=== PATIENT | male | born 1955 | race Caucasian/White ===

== ENCOUNTER 2018-07-14 02:31 | Observation (INO) | payer OTHER ==
[2018-07-14] MEDS ORDERED: SODIUM CHLORIDE 0.9% 1,000 ML IV STA (02:40)
--- NOTE | 2018-07-14 02:43 | ED ---
Chest Pain HPI - General Chief Complaint: Chest Pain Stated Complaint: Chest pain Time Seen by Provider: 07/14/18 02:40 Source: patient, EMS Mode of arrival: EMS - History of Present Illness Initial Comments: Sylvia is a 62-year-old male with history of his smoking and hypertension who presents the emergency department today for evaluation of chest pain. Patient reports that he has had chest pain intermittently throughout the past week, pain has resolved with rest in the past. Patient reports that this evening he developed pain and it persisted which prompted him to call EMS for transport to the hospital. Patient describes his pain as retrosternal, at its worst it was only a 4 out of 10 in intensity. The pain completely resolved after aspirin and nitro in route to the hospital. - Related Data Allergies Allergy/AdvReac Type Severity Reaction Status Date / Time No Known Allergies Allergy Verified 07/14/18 03:00 Review of Systems ROS Statement: Those systems with pertinent positive or pertinent negative responses have been documented in the HPI. ROS Other: All systems not noted in ROS Statement are negative. EKG Findings - EKG Comments: EKG Findings:: EKG obtained at 2:38 AM, rate is 63 rhythm is sinus is normal axis, normal intervals, ID 160, QRS 106, QTC is [address] elevations or depressions and no evidence of acute ischemia or infarction. Past Medical History Past Medical History: Hyperlipidemia, Hypertension, Osteoarthritis (OA) Additional Past Medical History / Comment(s): RLD History of Any Multi-Drug Resistant Organisms: None Reported Past Surgical History: Orthopedic Surgery Additional Past Surgical History / Comment(s): L leg ortho surgery, Past Psychological History: No Psychological Hx Reported Smoking Status: Current every day smoker Past Alcohol Use History: Occasional Past Drug Use History: None Reported General Exam - General Exam Comments Initial Comments: Physical Exam GENERAL: appears older than stated age Smells of cigarette smoke HENT: Normocephalic, Atraumatic. EYES: PERRL, EOMI PULMONARY: Unlabored respirations. No audible rales rhonchi or wheezing was noted. CARDIOVASCULAR: There is a regular rate and rhythm without any murmurs gallops or rubs. ABDOMEN: Soft and nontender with normal bowel sounds. No palpable abdominal mass SKIN: Skin is clear with no lesions or rashes and otherwise unremarkable. : Deferred NEUROLOGIC: Patient is alert and oriented x3. Moving all extremities spontaneously MUSCULOSKELETAL: Normal extremities with adequate strength and full range of motion. No lower extremity swelling or edema. No calf tenderness. PSYCHIATRIC: Normal psychiatric evaluation. Limitations: no limitations Course Vital Signs 07/14/18 07/14/18 02:35 06:09 Temperature 98.1 F Pulse Rate 65 64 Respiratory 16 16 Rate Blood Pressure 102/69 107/73 O2 Sat by Pulse 97 98 Oximetry Chest Pain MDM - [facility] The patient was seen and evaluated 62-year-old male with a history of tobacco abuse presenting to the ER today for evaluation of chest pain Chest pain has been intermittent but persistent tonight. Resolved with nitro and aspirin. Critical workup was ordered EKG was nonischemic Initial troponin negative Patient's risk factors I will plan to place him in observation for further evaluation. Patient care was discussed with his primary care physician Dr. Hall who accepts the admission. Disposition Clinical Impression: Chest pain Disposition: ADMITTED IP TO THIS HOSP
[2018-07-14 03:09] LABS: Basophils # (A) 0.1 k/uL (0-0.2); Basophils % (A) 1 %; Eosinophils # (A) 0.3 k/uL (0-0.7); Eosinophils % (A) 3 %; HCT 41.3 % (39.0-53.0); HGB 13.4 gm/dL (13.0-17.5); Lymphocytes # (A) 2.4 k/uL (1.0-4.8); Lymphocytes % (A) 21 %; MCH 34.6 pg (25.0-35.0); MCHC 32.4 g/dL (31.0-37.0); MCV 106.9 fL (80.0-100.0); Macrocytosis Moderate; Mean Platelet Volume 6.5; Monocytes # (A) 0.9 k/uL (0-1.0); Monocytes % (A) 8 %; Neutrophils # (A) 7.4 k/uL (1.3-7.7); Neutrophils % (A) 66 %; Platelet Count 316 k/uL (150-450); RBC 3.86 m/uL (4.30-5.90); RDW 12.6 % (11.5-15.5); WBC 11.2 k/uL (3.8-10.6)
[2018-07-14 03:22] LABS: INR 0.9 (<1.2); Partial Thromboplastin Time 22.6 sec (22.0-30.0); Prothrombin Time 9.4 sec (9.0-12.0)
[2018-07-14 03:30] LABS: ALT 29 U/L (21-72); AST 32 U/L (17-59); Albumin 3.4 g/dL (3.5-5.0); Alkaline Phosphatase 73 U/L (38-126); Anion Gap 6 mmol/L; Blood Urea Nitrogen 17 mg/dL (9-20); Calcium 8.9 mg/dL (8.4-10.2); Carbon Dioxide 23 mmol/L (22-30); Chloride 105 mmol/L (98-107); Glucose 96 mg/dL (74-99); Magnesium 1.8 mg/dL (1.6-2.3); Potassium 3.3 mmol/L (3.5-5.1); Sodium 134 mmol/L (137-145); Total Bilirubin 0.4 mg/dL (0.2-1.3); Total Protein 5.9 g/dL (6.3-8.2)
--- NOTE | 2018-07-14 03:32 | XR ---
EXAMINATION TYPE: XR chest 2V DATE OF EXAM: 07/14/2018 COMPARISON: NONE HISTORY: Chest pain TECHNIQUE: Frontal and lateral views of the chest are obtained. FINDINGS: There is coarsening of interstitial markings. There are mild infiltrates at the posterior lung base on the lateral view. There is no definite heart failure. Heart is enlarged. Mediastinum is normal. Bony thorax is intact. IMPRESSION: Cardiomegaly. Mild infiltrates at the posterior lung bases. No overt heart failure seen.
[2018-07-14] MEDS ORDERED: predniSONE 20 MG TAB PO STA (03:44)
[2018-07-14] MEDS ORDERED: AZITHROMYCIN 500 MG TAB PO STA (03:44)
[2018-07-14] MEDS ORDERED: Potassium Replacement Protocol 1 EACH MISC MISCELLANE PRN (03:45)
[2018-07-14 04:08] LABS: Creatine Kinase 106 U/L (55-170)
[2018-07-14 04:22] LABS: Creatine Kinase MB 1.3 ng/mL (0.0-2.4); Troponin I <0.012 ng/mL (0.000-0.034)
[2018-07-14] MEDS: POTASSIUM CHLORIDE ER 20 MEQ TAB.ER PO SCH ×2 (04:42→06:08)
[2018-07-14] MEDS ORDERED: NITROGLYCERIN SL TABS 0.4 MG TAB SUBLINGUAL PRN (05:14)
[2018-07-14 09:53] LABS: Creatine Kinase 91 U/L (55-170)
[2018-07-14 10:05] LABS: Creatine Kinase MB 1.2 ng/mL (0.0-2.4); Troponin I <0.012 ng/mL (0.000-0.034)
[2018-07-14 11:25] VITALS: RESP 18
[2018-07-14 15:48] LABS: Troponin I 0.018 ng/mL (0.000-0.034)
[2018-07-14 15:56] VITALS: BP 112/69; PULSE 69; TEMP 98.2
[2018-07-14] MEDS ORDERED: POTASSIUM CHLORIDE 2 MEQ/ML 20 ML VIAL IV SCH (16:00)
--- NOTE | 2018-07-14 17:36 | HP ---
HISTORY AND PHYSICAL CHIEF COMPLAINT: Chest pain. HISTORY OF PRESENT ILLNESS: This is another admission for this 62-year-old white male who has a history of hypertension and heavy smoking. He woke up with pain in the anterior chest which he described as feeling like tightness, but not a squeezing or pressure-like pain. He was not diaphoretic or short of breath. He was a little bit nauseated. He came to the emergency room, where his evaluation was negative, including his enzymes and EKG, and he was admitted. REVIEW OF SYSTEMS: He has had no syncope, neurologic problems, change in the vision or the hearing, cough, chest pain, palpitations, etc. He has had no orthopnea or PND. He has had no fever, chills, sputum production, abdominal pain, melena, hematochezia, jaundice, renal disease, diabetes, etc. Past medical history, family history, and personal and social histories reveal that he has no allergies. He is on Ultram, Requip, Tenoretic, Lipitor, vitamin D. He does have a history of alcoholism. He smokes every day and has a 41 pack/year history. PHYSICAL EXAMINATION: Blood pressure 116/80, pulse 58 and regular, respirations of 18. He is afebrile. GENERAL: He appeared to be well developed, well nourished, in no acute distress. Skin color was normal. Skin was warm and dry. Lymph nodes were not enlarged. Head, ears, eyes, nose, mouth and throat were normal. Neck veins were not distended. Carotids were normal. Chest was clear. Breath sounds were diminished due to his emphysema. Cardiac exam demonstrated normal sinus rhythm and no murmurs or extra sounds. Abdomen was soft, nontender without visceromegaly or masses. EXTREMITIES: Normal. Neurologically he was intact. IMPRESSION: 1. Chest pain. 2. Chronic obstructive pulmonary disease. 3. Hypertension. PLAN: 1. Bed rest. 2. IV fluids. 3. Serial EKGs and enzymes. MMODL / IJN: [id number] /
--- NOTE | 2018-07-15 00:02 | DS ---
DISCHARGE SUMMARY CHIEF COMPLAINT: Chest pain. HISTORY OF PRESENT ILLNESS AND PHYSICAL EXAM: The details of this man's history and physical can be found in the initial workup. LABORATORY STUDIES: While he was in the hospital he had laboratory studies, details which can be found in the laboratory section of his chart. COURSE IN HOSPITAL: After admission he was placed on bedrest and started on intravenous fluids. She had serial EKGs and enzymes. The enzymes were all normal. He was anxious to be discharged. He will go home on his usual activity, diet and medication. He will come into the office the next day and will do further cardiac testing. FINAL DIAGNOSES: 1. Chest pain. 2. Atherosclerotic cardiovascular disease. 3. Hypertension. 4. Chronic obstructive pulmonary disease. 5. Alcoholism. OPERATIONS: None. CONSULTATION: None. CONDITION: He is improved. MMODL / IJN: [id number] /
[2018-07-15] MEDS ORDERED: ASPIRIN 325 MG TAB PO SCH ×2 (09:00)
[2018-07-15] MEDS ORDERED: CHLORTHALIDONE 25 MG TAB PO SCH (09:00)
[2018-07-15] MEDS ORDERED: ATENOLOL 50 MG TAB PO SCH (09:00)
== END 2018-07-14 17:16 | disposition home or self-care (01) ==
LOC: EC 02:31 → 1SOBS 05:16
PROVIDERS: ADMIT Family Medicine; ATTEND Family Medicine
DX: R07.89 Other chest pain (principal); M19.90 Unspecified osteoarthritis, unspecified site; I10 Essential (primary) hypertension; R11.0 Nausea; F17.210 Nicotine dependence, cigarettes, uncomplicated; I25.10 Atherosclerotic heart disease of native coronary artery without angina pectoris; F10.20 Alcohol dependence, uncomplicated; J44.9 Chronic obstructive pulmonary disease, unspecified; E78.5 Hyperlipidemia, unspecified; Z79.899 Other long term (current) drug therapy
CPT/HCPCS: 96360; 99285; 36415; 93005; 83880; 80053; 82550; 82553; 83735; 84132; 84484; 85025; 85610; 85730; 71046; G0378; J7512

== ENCOUNTER → 2018-07-21 | Outpatient (CLI) | payer OTHER ==
--- NOTE | 2018-07-21 14:34 | US ---
EXAMINATION TYPE: US carotid duplex BILAT DATE OF EXAM: 07/21/2018 COMPARISON: NONE CLINICAL HISTORY: I65.23 Occlusion and stenosis of bilateral carotid. EXAM MEASUREMENTS: RIGHT: Peak Systolic Velocity (PSV) cm/sec ----- Right CCA: 72.6 ----- Right ICA: 89.6 ----- Right ECA: 62.1 ICA/CCA ratio: 1.2 RIGHT: End Diastole cm/sec ----- Right CCA: 21.6 ----- Right ICA: 33.7 ----- Right ECA: 11.3 LEFT: Peak Systolic Velocity (PSV) cm/sec ----- Left CCA: 82.5 ----- Left ICA: 86.1 ----- Left ECA: 60.4 ICA/CCA ratio: 1.0 LEFT: End Diastole cm/sec ----- Left CCA: 25.9 ----- Left ICA: 37.3 ----- Left ECA: 9.6 VERTEBRALS (direction of flow): Right Vertebral: Antegrade Left Vertebral: Antegrade Rhythm: Normal Moderate atherosclerotic changes with no significant velocity elevations visualized portion of both i nternal carotid arteries. IMPRESSION: Moderate atherosclerotic change bilaterally without hemodynamically significant stenosis seen in either internal carotid artery. Criteria for Assigning % of Stenosis / Diameter reduction (Estimation based on the indirect measurements of the internal carotid artery velocities (ICA PSV). 1. Normal (no stenosis)=ICA PSV < 125 cm/s: ratio < 2.0: ICA EDV<40 cm/s. 2. Less than 50% stenosis=ICA PSV < 125 cm/s: ratio < 2.0: ICA EDV<40 cm/s. 3. 50 to 69% stenosis=ICA PSV of 125 to 230 cm/s: ration 2.0 ? 4.0: ICA EDV 40-100 cm/s. 4. Greater than 70% stenosis to near occlusion= ICA PSV > 230 cm/s: ratio > 4.0: ICA EDV > 100 cm/s. 5. Near occlusion= ICA PSV velocities may be low or undetectable: variable ratio and ICA EDV. 6. Total occlusion=unable to detect flow.
== END | disposition home or self-care (01) ==
LOC: RADUSWWP 13:39
PROVIDERS: ATTEND Family Medicine
DX: I65.23 Occlusion and stenosis of bilateral carotid arteries (principal)
CPT/HCPCS: 93880

== ENCOUNTER 2021-08-19 10:27 | Emergency (ER) | payer OTHER ==
[2021-08-19 10:40] VITALS: BP 101/62; PULSE 76; TEMP 97.6
[2021-08-19 11:06] VITALS: RESP 18
--- NOTE | 2021-08-19 15:21 | ED ---
General Adult HPI - General Chief complaint: Weakness Stated complaint: mental health, chest pain, ETOH Time Seen by Provider: 08/19/21 10:57 Source: patient Mode of arrival: EMS Limitations: no limitations - History of Present Illness Initial comments: Patient eloped without being seen by a provider. He apparently took a cab home. I never saw patient and was not involved in his care. KG was obtained by nursing staff and is as documented: Normal sinus rhythm, ventricular rate 74, PA interval 136, QTC 421 - Related Data Home Medications Medication Instructions Recorded Confirmed Aspirin 325 mg PO DAILY 07/14/18 07/14/18 Atenolol/Chlorthalidone [Tenoretic 1 tab PO DAILY 07/14/18 07/14/18 50 Tablet] Atorvastatin [Lipitor] 10 mg PO HS 07/14/18 07/14/18 Diphenoxylate HCl/Atropine 1 - 2 tab PO QID PRN 07/14/18 07/14/18 [Lomotil 2.5-0.025 mg Tablet] Ondansetron [Zofran ODT] 4 mg PO Q6H PRN 07/14/18 07/14/18 rOPINIRole HCL [Requip] 4 mg PO HS 07/14/18 07/14/18 traMADol HCL [Ultram] 50 mg PO TID PRN 07/14/18 07/14/18 Previous Rx's Medication Instructions Recorded Aspirin 325 mg PO DAILY #100 tab 07/14/18 Allergies Allergy/AdvReac Type Severity Reaction Status Date / Time No Known Allergies Allergy Verified 07/14/18 07:40 Review of Systems ROS Statement: Those systems with pertinent positive or pertinent negative responses have been documented in the HPI. ROS Other: All systems not noted in ROS Statement are negative. Past Medical History Past Medical History: Hyperlipidemia, Hypertension, Osteoarthritis (OA) Additional Past Medical History / Comment(s): RLD History of Any Multi-Drug Resistant Organisms: None Reported Past Surgical History: Orthopedic Surgery Additional Past Surgical History / Comment(s): L leg ortho surgery, Past Anesthesia/Blood Transfusion Reactions: No Reported Reaction, Motion Sickness Past Psychological History: No Psychological Hx Reported Past Alcohol Use History: Occasional Past Drug Use History: None Reported - Past Family History Father Additional Family Medical History / Comment(s): Father in his mid to late 60s-pt was told cause of was because his "heart blew up" Mother Family Medical History: CVA/TIA, Diabetes Mellitus Additional Family Medical History / Comment(s): Mother had a CVA. Sister(s) Family Medical History: CVA/TIA, Diabetes Mellitus Additional Family Medical History / Comment(s): Pts twin sister of a CVA in her mid 50s. Brother(s) Family Medical History: CVA/TIA, Diabetes Mellitus Additional Family Medical History / Comment(s): Brother had CVA General Exam Limitations: no limitations Course Vital Signs 08/19/21 08/19/21 10:30 11:02 Temperature 97.6 F Pulse Rate 76 Respiratory 16 18 Rate Blood Pressure 101/62 O2 Sat by Pulse 98 Oximetry Disposition Clinical Impression: Weakness Disposition: Left Against Medical Advice Is patient prescribed a controlled substance at d/c from ED?: No Referrals: None,Stated [Primary Care Provider] - 1-2 days Time of Disposition: 15:20
== END 2021-08-19 11:25 | disposition left against medical advice (07) ==
LOC: EC 10:27
DX: R53.1 Weakness (principal); R07.9 Chest pain, unspecified; I10 Essential (primary) hypertension; M19.90 Unspecified osteoarthritis, unspecified site; E78.5 Hyperlipidemia, unspecified; K21.9 Gastro-esophageal reflux disease without esophagitis; Z79.82 Long term (current) use of aspirin; Z79.899 Other long term (current) drug therapy
CPT/HCPCS: 96374; 96375; 99285

== ENCOUNTER 2021-11-16 14:20 | Emergency (ER) | payer OTHER ==
[2021-11-16 14:23] VITALS: BP 127/78; PULSE 101; RESP 20
[2021-11-16 14:31] VITALS: TEMP 98.6
--- NOTE | 2021-11-16 14:39 | ED ---
General Adult HPI - General Chief complaint: Weakness Stated complaint: Weakness Time Seen by Provider: 11/16/21 14:26 Source: patient, EMS, RN notes reviewed Mode of arrival: EMS Limitations: no limitations - History of Present Illness Initial comments: Patient is a pleasant 65-year-old male presenting to the emergency department Gen. weakness and fatigue. Patient has been having symptoms a little bit, worsening today. Patient states he was walking out of his place in the [place] which takes him around 10 or 15 minutes he got more fatigued than normal and had to rest once or twice. Patient feels somewhat weak all over. Patient requests water and states he is starting to feel better. Patient feels he has been eating and drinking okay otherwise. Patient unclear on previous history of similar symptoms. Patient denies any confusion or isolated area of weakness. No fever. - Related Data Home Medications Medication Instructions Recorded Confirmed Aspirin 325 mg PO DAILY 07/14/18 07/14/18 Atenolol/Chlorthalidone [Tenoretic 1 tab PO DAILY 07/14/18 07/14/18 50 Tablet] Atorvastatin [Lipitor] 10 mg PO HS 07/14/18 07/14/18 Diphenoxylate HCl/Atropine 1 - 2 tab PO QID PRN 07/14/18 07/14/18 [Lomotil 2.5-0.025 mg Tablet] Ondansetron [Zofran ODT] 4 mg PO Q6H PRN 07/14/18 07/14/18 rOPINIRole HCL [Requip] 4 mg PO HS 07/14/18 07/14/18 traMADol HCL [Ultram] 50 mg PO TID PRN 07/14/18 07/14/18 Previous Rx's Medication Instructions Recorded Aspirin 325 mg PO DAILY #100 tab 07/14/18 Allergies Allergy/AdvReac Type Severity Reaction Status Date / Time No Known Allergies Allergy Verified 11/16/21 14:23 Review of Systems ROS Statement: Those systems with pertinent positive or pertinent negative responses have been documented in the HPI. ROS Other: All systems not noted in ROS Statement are negative. Constitutional: Denies: fever Eyes: Denies: eye pain ENT: Denies: ear pain Respiratory: Denies: cough Cardiovascular: Denies: chest pain Endocrine: Reports: fatigue Gastrointestinal: Denies: abdominal pain Genitourinary: Denies: dysuria Musculoskeletal: Denies: back pain Skin: Denies: rash Neurological: Reports: as per HPI Past Medical History Past Medical History: Hyperlipidemia, Hypertension, Osteoarthritis (OA) Additional Past Medical History / Comment(s): RLD History of Any Multi-Drug Resistant Organisms: None Reported Past Surgical History: Orthopedic Surgery Additional Past Surgical History / Comment(s): L leg ortho surgery, Past Anesthesia/Blood Transfusion Reactions: No Reported Reaction, Motion Sickness Past Psychological History: No Psychological Hx Reported Smoking Status: Current every day smoker Past Alcohol Use History: Occasional Past Drug Use History: None Reported - Past Family History Father Additional Family Medical History / Comment(s): Father in his mid to late 60s-pt was told cause of was because his "heart blew up" Mother Family Medical History: CVA/TIA, Diabetes Mellitus Additional Family Medical History / Comment(s): Mother had a CVA. Sister(s) Family Medical History: CVA/TIA, Diabetes Mellitus Additional Family Medical History / Comment(s): Pts twin sister of a CVA in her mid 50s. Brother(s) Family Medical History: CVA/TIA, Diabetes Mellitus Additional Family Medical History / Comment(s): Brother had CVA General Exam Limitations: no limitations General appearance: alert, in no apparent distress Head exam: Present: normocephalic Eye exam: Present: normal appearance, PERRL, EOMI ENT exam: Present: normal oropharynx Neck exam: Present: normal inspection Respiratory exam: Present: normal lung sounds bilaterally Cardiovascular Exam: Present: regular rate, normal rhythm GI/Abdominal exam: Present: soft. Absent: tenderness Extremities exam: Present: normal inspection Neurological exam: Present: alert, CN II-XII intact. Absent: motor sensory deficit Expanded Neurological exam: Present: protecting the airway Speech: Present: fluid speech Cranial nerves: EOM's Intact: Normal Sensory exam: Upper Extremity Light Touch: Normal, Lower Extremity Light Touch: Normal Motor strength exam: RUE: 5, LUE: 5, RLE: 5, LLE: 5 Eye Response: (4) open spontaneously Motor Response: (6) obeys commands Verbal Response: (5) oriented Psychiatric exam: Present: normal affect, normal mood Skin exam: Present: normal color Course Vital Signs 11/16/21 14:21 Temperature 98.6 F Pulse Rate 101 H Respiratory 20 Rate Blood Pressure 127/78 O2 Sat by Pulse 98 Oximetry EKG Findings - EKG Comments: EKG Findings:: Sinus rhythm rate 96. VA 175. QRS 16. QT 346. QTc 399. Normal axis. Normal QRS. No acute ST change. Medical Decision Making - Medical Decision Making Case discussed with Dr. Hall, who will admit patient. - Lab Data Result diagrams: 11/16/21 15:00 11/16/21 15:00 Lab Results 11/16/21 11/16/21 11/16/21 Range/Units 15:00 15:00 15:00 WBC 5.7 (3.8-10.6) k/uL RBC 3.36 L (4.30-5.90) m/uL Hgb 13.0 (13.0-17.5) gm/dL Hct 39.6 (39.0-53.0) % MCV 118.2 H (80.0-100.0) fL MCH 38.8 H (25.0-35.0) pg MCHC 32.8 (31.0-37.0) g/dL RDW 13.7 (11.5-15.5) % Plt Count 301 (150-450) k/uL MPV 7.1 Neutrophils % 61 % Lymphocytes % 27 % Monocytes % 7 % Eosinophils % 1 % Basophils % 1 % Neutrophils # 3.5 (1.3-7.7) k/uL Lymphocytes # 1.5 (1.0-4.8) k/uL Monocytes # 0.4 (0-1.0) k/uL Eosinophils # 0.1 (0-0.7) k/uL Basophils # 0.1 (0-0.2) k/uL Manual Slide Review Performed Macrocytosis Marked A PT 9.6 (9.0-12.0) sec INR 0.9 (<1.2) APTT 20.2 L (22.0-30.0) sec Sodium 143 (137-145) mmol/L Potassium 3.7 (3.5-5.1) mmol/L Chloride 110 H (98-107) mmol/L Carbon Dioxide 18 L (22-30) mmol/L Anion Gap 15 mmol/L BUN 19 (9-20) mg/dL Creatinine 1.02 (0.66-1.25) mg/dL Est GFR (CKD-EPI)AfAm 90 (>60 ml/min/1.73 sqM) Est GFR (CKD-EPI)NonAf 78 (>60 ml/min/1.73 sqM) Glucose 144 H (74-99) mg/dL Plasma Lactic Acid Archie (0.7-2.0) mmol/L Calcium 8.4 (8.4-10.2) mg/dL Magnesium 1.5 L (1.6-2.3) mg/dL Total Bilirubin 0.4 (0.2-1.3) mg/dL AST 49 (17-59) U/L ALT 21 (4-49) U/L Alkaline Phosphatase 71 (38-126) U/L Troponin I (0.000-0.034) ng/mL Total Protein 6.5 (6.3-8.2) g/dL Albumin 3.9 (3.5-5.0) g/dL Free T4 0.91 (0.78-2.19) ng/dL Free T3 pg/mL 3.3 (2.8-5.3) pg/ml 11/16/21 11/16/21 Range/Units 15:00 15:00 WBC (3.8-10.6) k/uL RBC (4.30-5.90) m/uL Hgb (13.0-17.5) gm/dL Hct (39.0-53.0) % MCV (80.0-100.0) fL MCH (25.0-35.0) pg MCHC (31.0-37.0) g/dL RDW (11.5-15.5) % Plt Count (150-450) k/uL MPV Neutrophils % % Lymphocytes % % Monocytes % % Eosinophils % % Basophils % % Neutrophils # (1.3-7.7) k/uL Lymphocytes # (1.0-4.8) k/uL Monocytes # (0-1.0) k/uL Eosinophils # (0-0.7) k/uL Basophils # (0-0.2) k/uL Manual Slide Review Macrocytosis PT (9.0-12.0) sec INR (<1.2) APTT (22.0-30.0) sec Sodium (137-145) mmol/L Potassium (3.5-5.1) mmol/L Chloride (98-107) mmol/L Carbon Dioxide (22-30) mmol/L Anion Gap mmol/L BUN (9-20) mg/dL Creatinine (0.66-1.25) mg/dL Est GFR (CKD-EPI)AfAm (>60 ml/min/1.73 sqM) Est GFR (CKD-EPI)NonAf (>60 ml/min/1.73 sqM) Glucose (74-99) mg/dL Plasma Lactic Acid Archie 4.3 H* (0.7-2.0) mmol/L Calcium (8.4-10.2) mg/dL Magnesium (1.6-2.3) mg/dL Total Bilirubin (0.2-1.3) mg/dL AST (17-59) U/L ALT (4-49) U/L Alkaline Phosphatase (38-126) U/L Troponin I <0.012 (0.000-0.034) ng/mL Total Protein (6.3-8.2) g/dL Albumin (3.5-5.0) g/dL Free T4 (0.78-2.19) ng/dL Free T3 pg/mL (2.8-5.3) pg/ml - Radiology Data Radiology results: report reviewed (Computed tomography scan the brain shows some atrophy. No acute process.), image reviewed (Chest x-ray shows no acute process) Disposition Clinical Impression: Lactic acidosis, Weakness Disposition: ADMITTED IP TO THIS [facility] Is patient prescribed a controlled substance at d/c from ED?: No Referrals: Paulo Hall MD [Primary Care Provider] - 1-2 days Decision Time: 15:58
[2021-11-16 15:34] LABS: Albumin 3.9 g/dL (3.5-5.0); Calcium 8.4 mg/dL (8.4-10.2); Magnesium 1.5 mg/dL (1.6-2.3); Potassium 3.7 mmol/L (3.5-5.1); Total Bilirubin 0.4 mg/dL (0.2-1.3); Total Protein 6.5 g/dL (6.3-8.2)
[2021-11-16 15:36] LABS: Basophils # (A) 0.1 k/uL (0-0.2); Basophils % (A) 1 %; Eosinophils # (A) 0.1 k/uL (0-0.7); Eosinophils % (A) 1 %; HCT 39.6 % (39.0-53.0); Lymphocytes # (A) 1.5 k/uL (1.0-4.8); Lymphocytes % (A) 27 %; MCH 38.8 pg (25.0-35.0); MCHC 32.8 g/dL (31.0-37.0); MCV 118.2 fL (80.0-100.0); Macrocytosis Marked; Mean Platelet Volume 7.1; Monocytes # (A) 0.4 k/uL (0-1.0); Monocytes % (A) 7 %; Neutrophils # (A) 3.5 k/uL (1.3-7.7); Neutrophils % (A) 61 %; Platelet Count 301 k/uL (150-450); RBC 3.36 m/uL (4.30-5.90); RDW 13.7 % (11.5-15.5); WBC 5.7 k/uL (3.8-10.6)
[2021-11-16 15:42] LABS: INR 0.9 (<1.2); Prothrombin Time 9.6 sec (9.0-12.0)
--- NOTE | 2021-11-16 15:43 | CT ---
EXAMINATION TYPE: CT brain wo con DATE OF EXAM: 11/16/2021 COMPARISON: 11/30/2010 HISTORY: CT DLP: mGycm Automated exposure control for dose reduction was used. There is mild cerebral cortical atrophy. There is no mass effect or midline shift. There is no sign o f intracranial hemorrhage. There is no evidence of cerebral edema. Calvarium is intact. There is norm al aeration of the mastoid sinuses. IMPRESSION: Mild atrophy. No acute intracranial abnormality. No adverse change..
--- NOTE | 2021-11-16 15:44 | XR ---
EXAMINATION TYPE: XR chest 2V DATE OF EXAM: 11/16/2021 COMPARISON: 07/14/2018 HISTORY: Chest pain. Weakness TECHNIQUE: FINDINGS: Heart and mediastinum are normal. Lungs are clear. Diaphragm is normal. Bony thorax appears normal. IMPRESSION: Normal chest. There is clearing of the mild atelectasis at the lung bases compared to old exam.
[2021-11-16 15:45] LABS: Partial Thromboplastin Time 20.2 sec (22.0-30.0)
[2021-11-16 15:50] LABS: T4, Free (Free Thyroxine) 0.91 ng/dL (0.78-2.19)
[2021-11-16] MEDS ORDERED: NALOXONE 0.4 MG/ML 1 ML VIAL IV PRN (15:59)
[2021-11-16] MEDS ORDERED: SODIUM CHLORIDE 0.9% 1,000 ML IV SCH (16:00)
== END 2021-11-16 16:22 | disposition other institution (70) ==
LOC: EC 14:20 → 4SSUR 16:00 → UNDOADMOB 16:00 → EC 16:22
DX: E87.2 Acidosis (principal); R53.1 Weakness; I10 Essential (primary) hypertension; F17.200 Nicotine dependence, unspecified, uncomplicated
CPT/HCPCS: 36415; 70450; 71046; 80053; 83605; 83735; 84439; 84443; 84481; 84484; 85025; 85610; 85730; 93005

== ENCOUNTER 2021-11-17 09:30 | Emergency (ER) | payer OTHER ==
[2021-11-17 09:36] VITALS: BP 173/89; PULSE 92; RESP 20; TEMP 97.7
[2021-11-17] MEDS ORDERED: SODIUM CHLORIDE 0.9% 2,000 ML IV STA (09:46)
[2021-11-17 10:35] LABS: Appearance,Urine Clear (Clear); Bilirubin,Urine Negative (Negative); Blood,Urine Negative (Negative); Color,Urine Yellow; Glucose,Urine (UA) Negative (Negative); Ketones,Urine Negative (Negative); Leukocyte Esterase,Urine Negative (Negative); Nitrite,Urine Negative (Negative); PH, Urine 6.5 (5.0-8.0); Protein,Urine Negative (Negative); Specific Gravity,Urine 1.012 (1.001-1.035); Urobilinogen,Urine <2.0 mg/dL (<2.0)
[2021-11-17 10:36] LABS: Basophils # (A) 0.1 k/uL (0-0.2); Basophils % (A) 1 %; Eosinophils # (A) 0.1 k/uL (0-0.7); Eosinophils % (A) 1 %; HCT 38.8 % (39.0-53.0); Lymphocytes # (A) 1.2 k/uL (1.0-4.8); Lymphocytes % (A) 19 %; MCH 38.9 pg (25.0-35.0); MCHC 33.6 g/dL (31.0-37.0); MCV 115.8 fL (80.0-100.0); Macrocytosis Marked; Mean Platelet Volume 7.2; Monocytes # (A) 0.5 k/uL (0-1.0); Monocytes % (A) 8 %; Neutrophils # (A) 4.6 k/uL (1.3-7.7); Neutrophils % (A) 70 %; Platelet Count 276 k/uL (150-450); RBC 3.35 m/uL (4.30-5.90); RDW 13.1 % (11.5-15.5); WBC 6.6 k/uL (3.8-10.6)
[2021-11-17 10:45] LABS: ALT 24 U/L (4-49); AST 63 U/L (17-59); African American GFR (CKD) >90 (>60 ml/min/1.73 sqM); Alkaline Phosphatase 76 U/L (38-126); Anion Gap 8 mmol/L; Blood Urea Nitrogen 15 mg/dL (9-20); Calcium 9.2 mg/dL (8.4-10.2); Carbon Dioxide 23 mmol/L (22-30); Chloride 102 mmol/L (98-107); Glucose 92 mg/dL (74-99); Lipase 147 U/L (23-300); Magnesium 1.3 mg/dL (1.6-2.3); Non-African American GFR(CKD) 89 (>60 ml/min/1.73 sqM); Potassium 3.7 mmol/L (3.5-5.1); Sodium 133 mmol/L (137-145); Total Bilirubin 0.7 mg/dL (0.2-1.3); Total Protein 6.9 g/dL (6.3-8.2)
[2021-11-17] MEDS ORDERED: MAGNESIUM OXIDE 400 MG TAB PO STA (12:28)
[2021-11-17] MEDS ORDERED: DIPHENOX-ATROP STARTER PACK 8 TAB BTL PO STA (12:30)
--- NOTE | 2021-11-17 12:30 | ED ---
General Adult HPI - General Chief complaint: Nausea/Vomiting/Diarrhea Stated complaint: diarrhea Time Seen by Provider: 11/17/21 09:42 Source: patient, RN notes reviewed Mode of arrival: ambulatory Limitations: no limitations - History of Present Illness Initial comments: 65-year-old male presents emergency Department with chief complaint of diarrhea. Patient states that they are for couple days. Patient denies any abdominal pain denies chest pain shortness breath he states he felt weak yesterday states he had an episode of diarrhea so he left the hospital. Patient states she does not have weakness he had history. Patient denies fevers or chills no dysuria no hematuria denies any melena hematochezia. - Related Data Home Medications Medication Instructions Recorded Confirmed traMADol HCL [Ultram] 50 mg PO BID PRN 07/14/18 11/17/21 Albuterol Sulfate [Proair Hfa] 2 puff INHALATION RT-Q6H PRN 11/17/21 11/17/21 Atenolol/Chlorthalidone 1 tab PO DAILY 11/17/21 11/17/21 [Atenolol/Chlorthalidone 50-25] Budesonide-Formot 160-4.5 Mcg 2 puff INHALATION RT-DAILY 11/17/21 11/17/21 [Symbicort 160-4.5 Mcg Inhaler] Ergocalciferol [Vitamin D2 (1250 1,250 mcg PO Q30D 11/17/21 11/17/21 Mcg = 29173 Iu)] rOPINIRole HCL [Requip] 10 mg PO HS PRN 11/17/21 11/17/21 Allergies Allergy/AdvReac Type Severity Reaction Status Date / Time No Known Allergies Allergy Verified 11/17/21 10:15 Review of Systems ROS Statement: Those systems with pertinent positive or pertinent negative responses have been documented in the HPI. ROS Other: All systems not noted in ROS Statement are negative. Past Medical History Past Medical History: Hyperlipidemia, Hypertension, Osteoarthritis (OA) Additional Past Medical History / Comment(s): RLD History of Any Multi-Drug Resistant Organisms: None Reported Past Surgical History: Orthopedic Surgery Additional Past Surgical History / Comment(s): L leg ortho surgery, Past Anesthesia/Blood Transfusion Reactions: No Reported Reaction, Motion Sickness Past Psychological History: No Psychological Hx Reported Smoking Status: Current every day smoker Past Alcohol Use History: Occasional Past Drug Use History: None Reported - Past Family History Father Additional Family Medical History / Comment(s): Father in his mid to late 60s-pt was told cause of was because his "heart blew up" Mother Family Medical History: CVA/TIA, Diabetes Mellitus Additional Family Medical History / Comment(s): Mother had a CVA. Sister(s) Family Medical History: CVA/TIA, Diabetes Mellitus Additional Family Medical History / Comment(s): Pts twin sister of a CVA in her mid 50s. Brother(s) Family Medical History: CVA/TIA, Diabetes Mellitus Additional Family Medical History / Comment(s): Brother had CVA General Exam Limitations: no limitations General appearance: alert, in no apparent distress Head exam: Present: atraumatic, normocephalic, normal inspection Eye exam: Present: normal appearance, PERRL, EOMI. Absent: scleral icterus, conjunctival injection, periorbital swelling ENT exam: Present: normal exam, normal oropharynx, mucous membranes moist Neck exam: Present: normal inspection, full ROM. Absent: tenderness, meningismus, lymphadenopathy Respiratory exam: Present: normal lung sounds bilaterally. Absent: respiratory distress, wheezes, rales, rhonchi, stridor Cardiovascular Exam: Present: regular rate, normal rhythm, normal heart sounds. Absent: systolic murmur, diastolic murmur, rubs, gallop, clicks GI/Abdominal exam: Present: soft, normal bowel sounds. Absent: distended, tenderness, guarding, rebound, rigid Back exam: Absent: CVA tenderness (R), CVA tenderness (L) Skin exam: Present: warm, dry, intact, normal color. Absent: rash Course Vital Signs 11/17/21 09:33 Temperature 97.7 F Pulse Rate 92 Respiratory 20 Rate Blood Pressure 173/89 O2 Sat by Pulse 100 Oximetry Medical Decision Making - Medical Decision Making Patient presented for diarrhea. Patient unable to provide sample. This most likely is related to viral diarrhea. Patient does have mild hypomagnesemia patient was given Mag-Ox patient will be discharged in stable condition return parameters were discussed. - Lab Data Result diagrams: 11/17/21 10:18 11/17/21 10:18 Lab Results 11/17/21 11/17/21 11/17/21 Range/Units 10:18 10:18 10:19 WBC 6.6 (3.8-10.6) k/uL RBC 3.35 L (4.30-5.90) m/uL Hgb 13.0 (13.0-17.5) gm/dL Hct 38.8 L (39.0-53.0) % MCV 115.8 H (80.0-100.0) fL MCH 38.9 H (25.0-35.0) pg MCHC 33.6 (31.0-37.0) g/dL RDW 13.1 (11.5-15.5) % Plt Count 276 (150-450) k/uL MPV 7.2 Neutrophils % 70 % Lymphocytes % 19 % Monocytes % 8 % Eosinophils % 1 % Basophils % 1 % Neutrophils # 4.6 (1.3-7.7) k/uL Lymphocytes # 1.2 (1.0-4.8) k/uL Monocytes # 0.5 (0-1.0) k/uL Eosinophils # 0.1 (0-0.7) k/uL Basophils # 0.1 (0-0.2) k/uL Macrocytosis Marked A Sodium 133 L (137-145) mmol/L Potassium 3.7 (3.5-5.1) mmol/L Chloride 102 (98-107) mmol/L Carbon Dioxide 23 (22-30) mmol/L Anion Gap 8 mmol/L BUN 15 (9-20) mg/dL Creatinine 0.91 (0.66-1.25) mg/dL Est GFR (CKD-EPI)AfAm >90 (>60 ml/min/1.73 sqM) Est GFR (CKD-EPI)NonAf 89 (>60 ml/min/1.73 sqM) Glucose 92 (74-99) mg/dL Calcium 9.2 (8.4-10.2) mg/dL Magnesium 1.3 L (1.6-2.3) mg/dL Total Bilirubin 0.7 (0.2-1.3) mg/dL AST 63 H (17-59) U/L ALT 24 (4-49) U/L Alkaline Phosphatase 76 (38-126) U/L Total Protein 6.9 (6.3-8.2) g/dL Albumin 4.0 (3.5-5.0) g/dL Lipase 147 (23-300) U/L Urine Color Yellow Urine Appearance Clear (Clear) Urine pH 6.5 (5.0-8.0) Ur Specific Lowry 1.012 (1.001-1.035) Urine Protein Negative (Negative) Urine Glucose (UA) Negative (Negative) Urine Ketones Negative (Negative) Urine Blood Negative (Negative) Urine Nitrite Negative (Negative) Urine Bilirubin Negative (Negative) Urine Urobilinogen <2.0 (<2.0) mg/dL Ur Leukocyte Esterase Negative (Negative) Disposition Clinical Impression: Diarrhea Disposition: HOME SELF-CARE Condition: Stable Instructions (If sedation given, give patient instructions): Acute Diarrhea (ED) Additional Instructions: Please return to the Emergency Department if symptoms worsen or any other concerns. Is patient prescribed a controlled substance at d/c from ED?: No Referrals: Paulo Hall MD [Primary Care Provider] - 1-2 days Time of Disposition: 12:29
== END 2021-11-17 12:55 | disposition home or self-care (01) ==
LOC: EC 09:30
DX: R19.7 Diarrhea, unspecified (principal); I10 Essential (primary) hypertension; F17.200 Nicotine dependence, unspecified, uncomplicated
CPT/HCPCS: 36415; 80053; 81003; 83690; 83735; 85025; 99284

== ENCOUNTER 2022-09-17 17:13 | Emergency (ER) | payer MEDICARE, OTHER ==
[2022-09-17] MEDS: SODIUM CHLORIDE 0.9% 1,000 ML IV STA ×2 (17:16→19:39)
[2022-09-17] MEDS ORDERED: HYDROmorphone 1 MG/ML 1 ML SYRINGE IVP STA ×5 (17:29→19:34)
[2022-09-17 17:30] VITALS: BP 93/80; PULSE 78; RESP 22
[2022-09-17] MEDS ORDERED: SODIUM CHLORIDE 0.9% 2,000 ML IV ONE (17:35)
[2022-09-17] MEDS ORDERED: DIPH,PERTUS(ACELL)TETVAC-LF 0.5 ML VIAL IM ONE (17:37)
[2022-09-17 17:57] LABS: Basophils # (A) 0.1 k/uL (0-0.2); Basophils % (A) 1 %; Eosinophils # (A) 0.1 k/uL (0-0.7); Eosinophils % (A) 1 %; HCT 40.6 % (39.0-53.0); HGB 13.8 gm/dL (13.0-17.5); Lymphocytes # (A) 3.2 k/uL (1.0-4.8); Lymphocytes % (A) 45 %; MCH 37.3 pg (25.0-35.0); MCHC 34.1 g/dL (31.0-37.0); MCV 109.6 fL (80.0-100.0); Macrocytosis Marked; Monocytes # (A) 0.8 k/uL (0-1.0); Monocytes % (A) 11 %; Neutrophils # (A) 2.8 k/uL (1.3-7.7); Neutrophils % (A) 39 %; Platelet Count 271 k/uL (150-450); RDW 13.5 % (11.5-15.5); WBC 7.1 k/uL (3.8-10.6)
[2022-09-17 18:05] LABS: Albumin 4.7 g/dL (3.5-5.0); Calcium 9.4 mg/dL (8.4-10.2); Potassium 3.7 mmol/L (3.5-5.1); Total Bilirubin 0.6 mg/dL (0.2-1.3); Total Protein 7.3 g/dL (6.3-8.2)
[2022-09-17] MEDS ORDERED: SODIUM CHLORIDE 0.9% 1,000 ML IV SCH (18:15)
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
[2022-09-17 18:30] LABS: INR 0.9 (<1.2); Prothrombin Time 9.5 sec (9.0-12.0)
[2022-09-17 18:33] LABS: Partial Thromboplastin Time 19.3 sec (22.0-30.0)
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
== END 2022-09-17 18:40 | disposition other institution (70) ==
LOC: EC 17:13
DX: T20.10XA Burn of first degree of head, face, and neck, unspecified site, initial encounter (principal); T23.202A Burn of second degree of left hand, unspecified site, initial encounter; T23.201A Burn of second degree of right hand, unspecified site, initial encounter; I10 Essential (primary) hypertension; M19.90 Unspecified osteoarthritis, unspecified site; F17.200 Nicotine dependence, unspecified, uncomplicated; Z79.899 Other long term (current) drug therapy; Z23 Encounter for immunization; X08.8XXA Exposure to other specified smoke, fire and flames, initial encounter
CPT/HCPCS: 99285 ×2; 96365 ×2; 96366 ×2; 90471 ×2; 96375 ×2; 96376 ×2; 16020 ×2; 16000 ×2; 36415; 93005; 86900; 86901; 80053; 83605; 84484; 85025; 85610; 85730; 86850; 71045; 90715; G0480; J0690; J1170; 80320

== ENCOUNTER 2024-03-03 11:07 | Emergency (ER) | payer MEDICARE, OTHER ==
--- NOTE | 2024-03-03 11:47 | ED ---
Extremity Problem HPI - General Chief complaint: Extremity Problem,Nontraumatic Stated complaint: Weakness Time Seen by Provider: 03/03/24 11:17 Source: patient, RN notes reviewed Mode of arrival: ambulatory Limitations: no limitations - History of Present Illness Initial comments: 68-year-old male presents emergency department complaint of bilateral lower extremity swelling. Patient states over the last couple days he also noticed that it is difficult to lay down at night and sleep states he feels like he cannot get enough air in. He has no history of congestive heart failure, no history of renal disease. Patient states never had any like this in the past he is a heavy smoker. Patient denies fevers or chills no chest pain. - Related Data Home Medications Medication Instructions Recorded Confirmed Albuterol Sulfate [Proair Hfa] 2 puff INHALATION RT-QID PRN 11/17/21 03/03/24 Budesonide-Formot 160-4.5 Mcg 2 puff INHALATION RT-BID PRN 11/17/21 03/03/24 [Symbicort 160-4.5 Mcg Inhaler] Amoxicillin 500 mg PO TID 03/03/24 03/03/24 Ibuprofen [Motrin] 800 mg PO Q4H PRN 03/03/24 03/03/24 Metoprolol Succinate (ER) [Toprol 50 mg PO DAILY 03/03/24 03/03/24 Xl] Previous Rx's Medication Instructions Recorded Azithromycin [Zithromax Z Pack] 0 tab PO DIRECTED #6 tab 03/03/24 Allergies Allergy/AdvReac Type Severity Reaction Status Date / Time No Known Allergies Allergy Verified 03/03/24 12:37 Review of Systems ROS Statement: Those systems with pertinent positive or pertinent negative responses have been documented in the HPI. ROS Other: All systems not noted in ROS Statement are negative. Past Medical History Past Medical History: Hyperlipidemia, Hypertension, Osteoarthritis (OA) Additional Past Medical History / Comment(s): RLD History of Any Multi-Drug Resistant Organisms: None Reported Past Surgical History: Orthopedic Surgery Additional Past Surgical History / Comment(s): L leg ortho surgery, Past Anesthesia/Blood Transfusion Reactions: No Reported Reaction, Motion Sic kness Past Psychological History: No Psychological Hx Reported Smoking Status: Current every day smoker Past Alcohol Use History: Occasional Past Drug Use History: None Reported - Past Family History Father Additional Family Medical History / Comment(s): Father in his mid to late 60s-pt was told cause of was because his "heart blew up" Mother Family Medical History: CVA/TIA, Diabetes Mellitus Additional Family Medical History / Comment(s): Mother had a CVA. Sister(s) Family Medical History: CVA/TIA, Diabetes Mellitus Additional Family Medical History / Comment(s): Pts twin sister of a CVA in her mid 50s. Brother(s) Family Medical History: CVA/TIA, Diabetes Mellitus Additional Family Medical History / Comment(s): Brother had CVA General Exam Limitations: no limitations General appearance: alert, in no apparent distress Head exam: Present: atraumatic, normocephalic, normal inspection Neck exam: Present: normal inspection, full ROM. Absent: tenderness, meningismus, lymphadenopathy Respiratory exam: Present: normal lung sounds bilaterally. Absent: respiratory distress, wheezes, rales, rhonchi, stridor Cardiovascular Exam: Present: regular rate, normal rhythm, normal heart sounds. Absent: systolic murmur, diastolic murmur, rubs, gallop, clicks GI/Abdominal exam: Present: soft, normal bowel sounds. Absent: distended, tenderness, guarding, rebound, rigid Extremities exam: Present: normal capillary refill, pedal edema Neurological exam: Present: alert Course Vital Signs 03/03/24 03/03/24 11:11 11:12 Temperature 98 F Pulse Rate 85 78 Respiratory 20 18 Rate Blood Pressure 140/91 146/99 O2 Sat by Pulse 99 94 L Oximetry Medical Decision Making - Medical Decision Making Was pt. sent in by a medical professional or institution (, PA, PSYCHIATRIC REGISTERED NURSE, urgent care, hospital, or correction...) When possible be specific @ -No Did you speak to anyone other than the patient for history (EMS, parent, family, police, friend...)? What history was obtained from this source @ -No Did you review nursing and triage notes (agree or disagree)? Why? @ -I reviewed and agree with nursing and triage notes Were old charts reviewed (outside hosp., previous admission, EMS record, old EKG, old radiological studies, urgent care reports/EKG's, correction records)? Report findings @ -No old charts were reviewed Differential Diagnosis (chest pain, altered mental status, abdominal pain women, abdominal pain men, vaginal bleeding, weakness, fever, dyspnea, syncope, headache, dizziness, GI bleed, back pain, seizure, CVA, palpatations, mental health, musculoskeletal)? @ -Differential Dyspnea: Coronary syndrome, arrhythmia, tamponade, asthma, COPD, pulmonary embolism, pneumonia, pneumothorax, pulmonary effusion, anaphylaxis, diabetic ketoacidosis, flailed chest, pulmonary contusion, diaphragmatic rupture, anemia, neuromuscular, this is not meant to be an all-inclusive list. EKG interpreted by me (3pts min.). @ -As above X-rays interpreted by me (1pt min.). @ -Chest x-ray shows right lower lobe pneumonia CT interpreted by me (1pt min.). @ -None done U/S interpreted by me (1pt. min.). @ -None done What testing was considered but not performed or refused? (CT, X-rays, U/S, labs)? Why? @ -None What meds were considered but not given or refused? Why? @ -None Did you discuss the management of the patient with other professionals (professionals i.e. , PA, PSYCHIATRIC REGISTERED NURSE, lab, RT, psych nurse, licensed clinical social worker, holistic health practitioner, teacher, district fire management officer, cyanide case hardener)? Give summary @ -No Was smoking cessation discussed for >3mins.? @ -No Was critical care preformed (if so, how long)? @ -No Were there social determinants of health that impacted care today? How? (Homelessness, low income, unemployed, alcoholism, drug addiction, transportation, low edu. Level, literacy, decrease access to med. care, snf, rehab)? @ -No Was there de-escalation of care discussed even if they declined (Discuss DNR or withdrawal of care, Hospice)? DNR status @ -No What co-morbidities impacted this encounter? (DM, HTN, Smoking, COPD, CAD, Cancer, CVA, ARF, Chemo, Hep., AIDS, mental health diagnosis, sleep apnea, morbid obesity)? @ -Smoking history Was patient admitted / discharged? Hospital course, mention meds given and route, prescriptions, significant lab abnormalities, going to OR and other pertinent info. @ -Discharge patient has no pleural effusions on x-ray patient who presented for dyspnea, or leg edema. Patient is advised to have restricted salt diet, elevation, compression stockings patient was treated for pneumonia with follow- up and possible echocardiogram and further treatment. Undiagnosed new problem with uncertain prognosis? @ -No Drug Therapy requiring intensive monitoring for toxicity (Heparin, Nitro, Insulin, Cardizem)? @ -No Were any procedures done? @ -No Diagnosis/symptom? @ -Pneumonia, leg edema Acute, or Chronic, or Acute on Chronic? @ -Acute Uncomplicated (without systemic symptoms) or Complicated (systemic symptoms)? @ -complicated Side effects of treatment? @ -No Exacerbation, Progression, or Severe Exacerbation? @ -No Poses a threat to life or bodily function? How? (Chest pain, USA, SD, pneumonia, PE, COPD, DKA, ARF, appy, cholecystitis, CVA, Diverticulitis, Homicidal, Suicidal, threat to staff... and all critical care pts) @ -Yes possible respiratory failure - Lab Data Result diagrams: 03/03/24 11:44 03/03/24 11:44 Lab Results 03/03/24 03/03/24 03/03/24 Range/Units 11:44 11:44 11:44 WBC 7.7 (3.8-10.6) k/uL RBC 3.30 L (4.30-5.90) m/uL Hgb 12.1 L (13.0-17.5) gm/dL Hct 37.6 L (39.0-53.0) % MCV 114.2 H (80.0-100.0) fL MCH 36.8 H (25.0-35.0) pg MCHC 32.2 (31.0-37.0) g/dL RDW 13.2 (11.5-15.5) % Plt Count 361 (150-450) k/uL MPV 7.9 Neutrophils % 62 % Lymphocytes % 22 % Monocytes % 12 % Eosinophils % 1 % Basophils % 1 % Neutrophils # 4.8 (1.3-7.7) k/uL Lymphocytes # 1.7 (1.0-4.8) k/uL Monocytes # 1.0 (0-1.0) k/uL Eosinophils # 0.1 (0-0.7) k/uL Basophils # 0.1 (0-0.2) k/uL Manual Slide Review Performed Macrocytosis Marked A PT 9.9 L (10.0-12.5) sec INR 0.9 (<1.2) APTT 22.7 (22.0-30.0) sec Sodium 135 L (137-145) mmol/L Potassium 4.6 (3.5-5.1) mmol/L Chloride 109 H (98-107) mmol/L Carbon Dioxide 21 L (22-30) mmol/L Anion Gap 5 mmol/L BUN 12 (9-20) mg/dL Creatinine 0.83 (0.66-1.25) mg/dL Est GFR (CKD-EPI)AfAm >90 (>60 ml/min/1.73 sqM) Est GFR (CKD-EPI)NonAf >90 (>60 ml/min/1.73 sqM) Glucose 90 (74-99) mg/dL Calcium 9.4 (8.4-10.2) mg/dL Magnesium 1.7 (1.6-2.3) mg/dL Total Bilirubin 0.7 (0.2-1.3) mg/dL AST 77 H (17-59) U/L ALT 93 H (4-49) U/L Alkaline Phosphatase 108 (38-126) U/L Troponin I (0.000-0.034) ng/mL NT-Pro-B Natriuret Pep 3220 pg/mL Total Protein 6.5 (6.3-8.2) g/dL Albumin 4.0 (3.5-5.0) g/dL 03/03/24 Range/Units 11:44 WBC (3.8-10.6) k/uL RBC (4.30-5.90) m/uL Hgb (13.0-17.5) gm/dL Hct (39.0-53.0) % MCV (80.0-100.0) fL MCH (25.0-35.0) pg MCHC (31.0-37.0) g/dL RDW (11.5-15.5) % Plt Count (150-450) k/uL MPV Neutrophils % % Lymphocytes % % Monocytes % % Eosinophils % % Basophils % % Neutrophils # (1.3-7.7) k/uL Lymphocytes # (1.0-4.8) k/uL Monocytes # (0-1.0) k/uL Eosinophils # (0-0.7) k/uL Basophils # (0-0.2) k/uL Manual Slide Review Macrocytosis PT (10.0-12.5) sec INR (<1.2) APTT (22.0-30.0) sec Sodium (137-145) mmol/L Potassium (3.5-5.1) mmol/L Chloride (98-107) mmol/L Carbon Dioxide (22-30) mmol/L Anion Gap mmol/L BUN (9-20) mg/dL Creatinine (0.66-1.25) mg/dL Est GFR (CKD-EPI)AfAm (>60 ml/min/1.73 sqM) Est GFR (CKD-EPI)NonAf (>60 ml/min/1.73 sqM) Glucose (74-99) mg/dL Calcium (8.4-10.2) mg/dL Magnesium (1.6-2.3) mg/dL Total Bilirubin (0.2-1.3) mg/dL AST (17-59) U/L ALT (4-49) U/L Alkaline Phosphatase (38-126) U/L Troponin I <0.012 (0.000-0.034) ng/mL NT-Pro-B Natriuret Pep pg/mL Total Protein (6.3-8.2) g/dL Albumin (3.5-5.0) g/dL - EKG Data -: EKG Interpreted by Me EKG Comments: EKG performed at 11: 38 sinus rhythm rate of 82 VT 170 QRS 106 QT/QTc [id number] Disposition Clinical Impression: Pneumonia, Leg edema Disposition: HOME SELF-CARE Condition: Stable Instructions (If sedation given, give patient instructions): Pneumonia (ED), Leg Edema (ED) Additional Instructions: Wear compression stockings, low-salt diet. Follow-up with your primary care physician for further testing. Please return to the Emergency Department if symptoms worsen or any other concerns. Prescriptions: Azithromycin [Zithromax Z Pack] 0 tab PO DIRECTED #6 tab Is patient prescribed a controlled substance at d/c from ED?: No Referrals: Paulo Hall MD [Primary Care Provider] - 1-2 days Time of Disposition: 13:17
[2024-03-03 12:01] VITALS: RESP 18
[2024-03-03 12:05] LABS: INR 0.9 (<1.2); Partial Thromboplastin Time 22.7 sec (22.0-30.0); Prothrombin Time 9.9 sec (10.0-12.5)
[2024-03-03 12:09] LABS: ALT 93 U/L (4-49); African American GFR (CKD) >90 (>60 ml/min/1.73 sqM); Anion Gap 5 mmol/L; Blood Urea Nitrogen 12 mg/dL (9-20); Calcium 9.4 mg/dL (8.4-10.2); Carbon Dioxide 21 mmol/L (22-30); Chloride 109 mmol/L (98-107); Glucose 90 mg/dL (74-99); Non-African American GFR(CKD) >90 (>60 ml/min/1.73 sqM); Sodium 135 mmol/L (137-145); Total Bilirubin 0.7 mg/dL (0.2-1.3)
[2024-03-03 12:12] LABS: Potassium 4.6 mmol/L (3.5-5.1)
[2024-03-03 12:13] LABS: AST 77 U/L (17-59); Alkaline Phosphatase 108 U/L (38-126); Basophils # (A) 0.1 k/uL (0-0.2); Basophils % (A) 1 %; Eosinophils # (A) 0.1 k/uL (0-0.7); Eosinophils % (A) 1 %; HCT 37.6 % (39.0-53.0); HGB 12.1 gm/dL (13.0-17.5); Lymphocytes # (A) 1.7 k/uL (1.0-4.8); Lymphocytes % (A) 22 %; MCH 36.8 pg (25.0-35.0); MCHC 32.2 g/dL (31.0-37.0); MCV 114.2 fL (80.0-100.0); Macrocytosis Marked; Magnesium 1.7 mg/dL (1.6-2.3); Mean Platelet Volume 7.9; Monocytes % (A) 12 %; Neutrophils # (A) 4.8 k/uL (1.3-7.7); Neutrophils % (A) 62 %; Platelet Count 361 k/uL (150-450); RDW 13.2 % (11.5-15.5); Total Protein 6.5 g/dL (6.3-8.2); WBC 7.7 k/uL (3.8-10.6)
[2024-03-03 12:18] LABS: NT-Pro-B-Type Natriuretic Pept 3220 pg/mL
--- NOTE | 2024-03-03 12:34 | XR ---
EXAMINATION TYPE: XR chest 2V DATE OF EXAM: 03/03/2024 12:13 PM CLINICAL INDICATION:Male, 68 years old with history of difficulty breathing; [facility] COMPARISON: Chest radiographs from 11/23/2022. TECHNIQUE: XR chest 2V Frontal and lateral views of the chest. FINDINGS: Lungs/Pleura: Right middle lobe airspace opacities. eThere is no evidence of pleural effusion, focal consolidation, or pneumothorax. Pulmonary vascularity: Unremarkable. Heart/mediastinum: Cardiomediastinal silhouette is unremarkable. Musculoskeletal: No acute osseous pathology. Other findings: None Lines/Tubes: IMPRESSION: Right middle lobe airspace opacities correlate for pneumonia.
[2024-03-03] MEDS: FUROSEMIDE 10 MG/ML 4 ML VIAL IV STA (13:41)
[2024-03-03] MEDS: cefTRIAXone IN SWFI 1,000 MG/10 ML SYRINGE IVP STA (13:41)
[2024-03-03 13:54] VITALS: BP 138/62; PULSE 74; TEMP 98
== END 2024-03-03 13:53 | disposition home or self-care (01) ==
LOC: EC 11:07
DX: J18.9 Pneumonia, unspecified organism (principal); R60.0 Localized edema; F17.200 Nicotine dependence, unspecified, uncomplicated
CPT/HCPCS: 36415; 93005; 83880; 80053; 83735; 84484; 85025; 85610; 85730; 71046; 99285; 96374; 96375; J1940; J0696

== ENCOUNTER 2024-04-25 06:52 | Inpatient (IN) | payer MEDICARE, OTHER ==
[~2024-04-25 06:52] MED LIST: ASPIRIN 325 MG TAB ONE; HYDROmorphone 1 MG/ML 1 ML SYRINGE ONE; METOCLOPRAMIDE 5 MG/ML 2 ML VIAL ONE; ONDANSETRON 4 MG/2 ML VIAL ONE; diphenhydrAMINE 50 MG/ML 1 ML VIAL ONE
[2024-04-25] MEDS ORDERED: HYDROcodone/APAP 5-325MG 1 EACH TAB ONE (07:52)
[2024-04-25] MEDS ORDERED: LOPERAMIDE 2 MG CAP ONE (08:14)
[2024-04-25] MEDS ORDERED: THIAMINE 100 MG/ML 2 ML VIAL ONE (08:59)
[2024-04-25] MEDS ORDERED: LORazepam 2 MG/ML INJ ONE (08:59)
[2024-04-25] MEDS ORDERED: POTASSIUM CHLORIDE ER 20 MEQ TAB.ER PO ONE (15:57)
[2024-04-25] MEDS ORDERED: THIAMINE 100 MG TAB ONE (20:15)
[2024-04-25] MEDS ORDERED: ATORVASTATIN 40 MG TAB ONE (20:16)
[2024-04-26] MEDS ORDERED: THIAMINE 100 MG TAB ONE ×2 (08:49→20:30)
[2024-04-26] MEDS ORDERED: ACETAMINOPHEN TAB 325 MG TAB ONE (08:49)
[2024-04-26] MEDS ORDERED: ASPIRIN 81 MG ONE (08:49)
[2024-04-26] MEDS ORDERED: METOPROLOL SUCCINATE (ER) 50 MG TAB.ER.24H PO ONE (08:50)
[2024-04-26] MEDS ORDERED: ATORVASTATIN 40 MG TAB ONE (20:30)
[2024-04-27] MEDS ORDERED: ALBUTEROL HFA INHALER INHALATION ONE (00:01)
[2024-04-27] MEDS ORDERED: METOPROLOL SUCCINATE (ER) 50 MG TAB.ER.24H PO ONE (09:06)
[2024-04-27] MEDS ORDERED: THIAMINE 100 MG TAB ONE ×2 (09:06→20:07)
[2024-04-27] MEDS ORDERED: ASPIRIN 81 MG ONE (09:06)
[2024-04-27] MEDS ORDERED: CLOPIDOGREL 75 MG TAB ONE (09:06)
[2024-04-27] MEDS ORDERED: ATORVASTATIN 40 MG TAB ONE (20:07)
[2024-04-28] MEDS ORDERED: SYMBICORT 160-4.5 MCG INHALER INHALATION ONE (00:01)
[2024-04-28] MEDS ORDERED: ALBUTEROL HFA INHALER INHALATION ONE (00:01)
[2024-04-28] MEDS ORDERED: ASPIRIN 81 MG ONE (08:23)
[2024-04-28] MEDS ORDERED: METOPROLOL SUCCINATE (ER) 50 MG TAB.ER.24H PO ONE (08:24)
[2024-04-28] MEDS ORDERED: THIAMINE 100 MG TAB ONE ×2 (08:24→19:56)
[2024-04-28] MEDS ORDERED: CLOPIDOGREL 75 MG TAB ONE (08:24)
[2024-04-28] MEDS ORDERED: LIDOCAINE 1% INJ 10MG/ML (20 ML MDV) ONE (10:44)
[2024-04-28] MEDS ORDERED: SODIUM CHLORIDE 0.9% 1,000 ML BAG ONE (11:00)
[2024-04-28] MEDS ORDERED: MIDAZOLAM 2 MG/2 ML VIAL ONE (11:06)
[2024-04-28] MEDS: IOPAMIDOL-370 200ML BTL INJ ONE (11:07)
[2024-04-28] MEDS ORDERED: ATORVASTATIN 40 MG TAB ONE (19:56)
[2024-04-29] MEDS ORDERED: ASPIRIN 81 MG ONE (08:28)
[2024-04-29] MEDS ORDERED: CLOPIDOGREL 75 MG TAB ONE (08:28)
[2024-04-29] MEDS ORDERED: METOPROLOL SUCCINATE (ER) 50 MG TAB.ER.24H PO ONE (08:28)
[2024-04-29] MEDS ORDERED: MULTIVITAMINS, THERA 1 EACH TAB ONE (08:28)
[2024-04-29] MEDS ORDERED: THIAMINE 100 MG TAB ONE ×3 (08:28→19:55)
[2024-04-29] MEDS ORDERED: LOSARTAN 25 MG TAB ONE ×2 (16:23→18:47)
[2024-04-29] MEDS ORDERED: ATORVASTATIN 40 MG TAB ONE (19:55)
[2024-04-30] MEDS ORDERED: ALBUTEROL HFA INHALER INHALATION ONE (08:00)
[2024-04-30] MEDS ORDERED: SYMBICORT 160-4.5 MCG INHALER INHALATION ONE (08:00)
[2024-04-30] MEDS ORDERED: METOPROLOL SUCCINATE (ER) 50 MG TAB.ER.24H PO ONE (09:52)
[2024-04-30] MEDS ORDERED: ASPIRIN 81 MG ONE (09:52)
[2024-04-30] MEDS ORDERED: LOSARTAN 25 MG TAB ONE (09:52)
[2024-04-30] MEDS ORDERED: CLOPIDOGREL 75 MG TAB ONE (09:52)
[2024-04-30] MEDS ORDERED: THIAMINE 100 MG TAB ONE ×2 (09:52→20:40)
[2024-04-30] MEDS ORDERED: MULTIVITAMINS, THERA 1 EACH TAB ONE (09:52)
[2024-04-30] MEDS ORDERED: ACETAMINOPHEN TAB 325 MG TAB ONE (18:02)
[2024-04-30] MEDS ORDERED: ATORVASTATIN 40 MG TAB ONE (20:41)
[2024-05-01] MEDS ORDERED: ACETAMINOPHEN TAB 325 MG TAB ONE ×2 (00:19→21:59)
[2024-05-01] MEDS ORDERED: LOSARTAN 25 MG TAB ONE (09:25)
[2024-05-01] MEDS ORDERED: MULTIVITAMINS, THERA 1 EACH TAB ONE (09:25)
[2024-05-01] MEDS ORDERED: ASPIRIN 81 MG ONE (09:25)
[2024-05-01] MEDS ORDERED: THIAMINE 100 MG TAB ONE ×2 (09:26→20:43)
[2024-05-01] MEDS ORDERED: CLOPIDOGREL 75 MG TAB ONE (09:26)
[2024-05-01] MEDS ORDERED: METOPROLOL SUCCINATE (ER) 50 MG TAB.ER.24H PO ONE (09:26)
[2024-05-01] MEDS ORDERED: ATORVASTATIN 40 MG TAB ONE (20:43)
[2024-05-02] MEDS ORDERED: METOPROLOL SUCCINATE (ER) 50 MG TAB.ER.24H PO ONE (07:57)
[2024-05-02] MEDS ORDERED: THIAMINE 100 MG TAB ONE ×2 (07:57→20:24)
[2024-05-02] MEDS ORDERED: MULTIVITAMINS, THERA 1 EACH TAB ONE (07:57)
[2024-05-02] MEDS ORDERED: LOSARTAN 25 MG TAB ONE (07:57)
[2024-05-02] MEDS ORDERED: SODIUM CHLORIDE 0.9% 500 ML BAG ONE (08:00)
[2024-05-02] MEDS ORDERED: ONDANSETRON 4 MG/2 ML VIAL ONE (11:34)
[2024-05-02] MEDS ORDERED: DEXAMETHASONE SOD PHOSPHATE 4 MG/ML 1 ML VIAL ONE (11:34)
[2024-05-02] MEDS ORDERED: MIDAZOLAM 2 MG/2 ML VIAL ONE ×2 (11:44→12:31)
[2024-05-02] MEDS ORDERED: SODIUM CHLORIDE 0.9% 1,000 ML BAG ONE ×2 (12:00)
[2024-05-02] MEDS ORDERED: HEPARIN SODIUM 1,000 UN/ML (10ML VL) ONE (12:00)
[2024-05-02] MEDS ORDERED: THROMBIN (BOVINE) 5,000 UNIT VIAL ONE (12:00)
[2024-05-02] MEDS ORDERED: SODIUM CHLORIDE 0.9% 50 ML BAG IV ONE (12:00)
[2024-05-02] MEDS ORDERED: ceFAZolin 10 GM VIAL IVPB ONE ×2 (12:00)
[2024-05-02] MEDS ORDERED: LACTATED RINGERS 1,000 ML BAG ONE (12:00)
[2024-05-02] MEDS ORDERED: LIDOCAINE 1% INJ 10MG/ML (20 ML MDV) ONE ×2 (12:00→12:31)
[2024-05-02] MEDS ORDERED: GLYCOPYRROLATE 0.2 MG/ML 2 ML VIAL ONE (12:31)
[2024-05-02] MEDS ORDERED: HEPARIN SODIUM,PORCINE 10,000 UNIT/ML 1 ML VIAL ONE (12:31)
[2024-05-02] MEDS ORDERED: PHENYLEPHRINE 10 MG/ML VIAL ONE ×2 (12:31→14:58)
[2024-05-02] MEDS ORDERED: NEOSTIGMINE 1 MG/ML 10 ML VIAL ONE (12:31)
[2024-05-02] MEDS ORDERED: PROPOFOL 10 MG/ML 20 ML VIAL IV ONE (12:31)
[2024-05-02] MEDS ORDERED: ROCURONIUM 10 MG/ML (5 ML VIAL) IV ONE (12:31)
[2024-05-02] MEDS ORDERED: WATER FOR INJECTION, STERILE 10 ML VIAL IV ONE (12:31)
[2024-05-02] MEDS ORDERED: SUCCINYLCHOLINE CHLORIDE 200 MG/10 ML VIAL IV ONE (12:31)
[2024-05-02] MEDS ORDERED: PROTAMINE SULFATE 10 MG/ML 5 ML VIAL ONE (12:31)
[2024-05-02] MEDS ORDERED: fentaNYL (PF) 50 MCG/ML 2 ML AMP ONE (12:31)
[2024-05-02] MEDS ORDERED: SODIUM CHLORIDE 0.9% 250 ML BAG ONE (14:58)
[2024-05-02] MEDS ORDERED: PHENYLEPHRINE-0.9% NACL SYG 1,000 MCG/10 ML SYRINGE ONE (14:58)
[2024-05-02] MEDS ORDERED: ATORVASTATIN 40 MG TAB ONE (20:24)
[2024-05-02] MEDS ORDERED: ACETAMINOPHEN TAB 325 MG TAB ONE (21:42)
[2024-05-03] MEDS ORDERED: PIPERACILLIN-TAZOBACTAM 3.375 GM VIAL ONE (00:25)
[2024-05-03] MEDS ORDERED: ASPIRIN 81 MG ONE (10:28)
[2024-05-03] MEDS ORDERED: THIAMINE 100 MG TAB ONE (10:28)
[2024-05-03] MEDS ORDERED: ATORVASTATIN 40 MG TAB ONE (10:28)
[2024-05-03] MEDS ORDERED: MULTIVITAMINS, THERA 1 EACH TAB ONE (10:28)
[2024-05-03] MEDS ORDERED: CLOPIDOGREL 75 MG TAB ONE (10:28)
[2024-05-03] MEDS ORDERED: BENZOCAINE/MENTHOL LOZENG 1 EACH LOZENGE MUCOUS MEM ONE (10:32)
--- NOTE | 2024-05-09 13:28 | US ---
EXAMINATION TYPE: US carotid duplex BILAT DATE OF EXAM: 05/09/2024 COMPARISON: 07/21/2018 CLINICAL INDICATION: Male, 68 years old with history of Dysphagia; HTN, smoker, left sided weakness TECHNIQUE: Carotid duplex ultrasound examination. Indirect Doppler criteria was utilized. FINDINGS: EXAM MEASUREMENTS: RIGHT: Peak Systolic Velocity (PSV) cm/sec ----- Right CCA: 49 ----- Right ICA: 140 ----- Right ECA: 96 ICA/CCA ratio: 2.8 RIGHT: End Diastole cm/sec ----- Right CCA: 14 ----- Right ICA: 24 ----- Right ECA: 19 LEFT: Peak Systolic Velocity (PSV) cm/sec ----- Left CCA: 50 ----- Left ICA: 80 ----- Left ECA: 113 ICA/CCA ratio: 1.6 LEFT: End Diastole cm/sec ----- Left CCA: 10 ----- Left ICA: 21 ----- Left ECA: 12 VERTEBRALS (direction of flow): Right Vertebral: Antegrade Left Vertebral: Antegrade Rhythm: Normal FOOD SANITARIAN NOTES: Calcific plaque seen bilateral CCAs, ICAs, and ECAs. Increased velocities within t he right ICA, and not intimal thickening seen. Calcification seen right lateral neck = 1.8 x 0.8 x 1. 4 cm IMPRESSION: 1. 50-69% stenosis of the right carotid bifurcation. 2. Less than 50% stenosis of the left carotid bifurcation. Criteria for Assigning % of Stenosis / Diameter reduction (Estimation based on the indirect measurements of the internal carotid artery velocities (ICA PSV). 1. Normal (no stenosis)=ICA PSV < 125 cm/s: ratio < 2.0: ICA EDV<40 cm/s. 2. Less than 50% stenosis=ICA PSV < 125 cm/s: ratio < 2.0: ICA EDV<40 cm/s. 3. 50 to 69% stenosis=ICA PSV of 125 to 230 cm/s: ration 2.0 ? 4.0: ICA EDV 40-100 cm/s. 4. Greater than 70% stenosis to near occlusion= ICA PSV > 230 cm/s: ratio > 4.0: ICA EDV > 100 cm/s. 5. Near occlusion= ICA PSV velocities may be low or undetectable: variable ratio and ICA EDV. 6. Total occlusion=unable to detect flow.
--- NOTE | 2024-05-22 15:16 | MR ---
EXAMINATION TYPE: MR brain wo con DATE OF EXAM: 04/28/2024 COMPARISON: No comparison available on downtime PACS. HISTORY: Slurred speech and facial drooping blurred vision CONTRAST: Performed utilizing 0 mL intravenous Gadavist gadolinium contrast. TECHNIQUE: Multiplanar, multiecho imaging on a 3.0 Anna magnet is performed through the brain. Stud y is performed within 24 hours of arrival to the hospital. The craniovertebral junction is normal. The pituitary is normal. Diffusion-weighted imaging is performed. There are scattered punctate areas of hyperintensity throug h the posterior right parietal and occipital lobes. There are scattered punctate areas within the rig ht negro radiata and centrum semiovale parietal lobe. Findings could be compatible with acute ischem ic changes. Consider venous infarcts and emboli. There are scattered punctate areas of hyperintensity on T2 and Inversion Recovery weighted sequences which are non-specific but can be related to microvascular ischemic changes. Ventricles and sulci are somewhat prominent for the patient age. IMPRESSION: 1. Scattered punctate hyperintensities within the right parietal-occipital region and within the righ t negro radiata and right parietal lobe. Acute ischemic changes present, correlate for emboli and ve nous infarcts. 2. There are additional areas of chronic appearing white matter ischemic type changes with atrophy.
--- NOTE | 2024-05-30 08:41 | CA ---
Transthoracic Echo Report Name: James Peralta Age: 68 Gender: O : 1955 Exam Date: 04/27/2024 08:02 Exam Location: [facility] Ht (in): 69 Wt (lb): 165 Ordering Physician: Attending/Referring Phys: Shopper'S Aide Debbie Pedroza RDCS Procedure CPT: Indications: Cerebral infarction due to thrombosis of unspecified carotid artery Cardiac Hx: CVA Technical Quality: Good Contrast 1: Total Dose (mL): Contrast 2: Total Dose (mL): MEASUREMENTS (Male / Female) Normal Values 2D ECHO LV Diastolic Diameter PLAX 5.6 cm 4.2 - 5.9 / 3.9 - 5.3 cm LV Systolic Diameter PLAX 5.0 cm IVS Diastolic Thickness 1.1 cm 0.6 - 1.0 / 0.6 - 0.9 cm LVPW Diastolic Thickness 1.1 cm 0.6 - 1.0 / 0.6 - 0.9 cm LV Relative Wall Thickness 0.4 RV Internal Dim ED PLAX 1.7 cm LA Systolic Diameter LX 3.8 cm 3.0 - 4.0 / 2.7 - 3.8 cm LV Diastolic Volume MOD BP 122.0 cm??? 67 - 155 / 56 - 104 cm??? LV Systolic Volume MOD BP 84.9 cm??? 22 - 58 / 19 - 49 cm??? LV Ejection Fraction MOD BP 30.4 % >= 55 % LV Cardiac Index MOD BP 1781.3 cm???/min???m??? LV Diastolic Volume MOD 4C 114.3 cm??? LV Systolic Volume MOD 4C 79.8 cm??? LV Ejection Fraction MOD 4C 30.2 % LV Cardiac Index MOD 4C 1655.7 cm???/min???m??? LV Diastolic Length 4C 8.7 cm LV Systolic Length 4C 8.0 cm LV Diastolic Volume MOD 2C 125.7 cm??? LV Systolic Volume MOD 2C 85.7 cm??? LV Ejection Fraction MOD 2C 31.8 % LV Cardiac Index MOD 2C 1921.3 cm???/min???m??? LV Diastolic Length 2C 9.0 cm LV Systolic Length 2C 8.5 cm M-MODE Aortic Root Diameter MM 3.4 cm LA Systolic Diameter MM 3.2 cm LA Ao Ratio MM 0.9 AV Cusp Separation MM 1.8 cm DOPPLER Mitral E Point Velocity 49.3 cm/s Mitral A Point Velocity 89.9 cm/s Mitral E to A Ratio 0.5 MV Deceleration Time 277.3 ms TR Peak Velocity 218.2 cm/s TR Peak Gradient 19.0 mmHg Right Ventricular Systolic Press 29.0 mmHg FINDINGS Left Ventricle Left ventricular ejection fraction is estimated at 30-35%. Severely increased left ventricular systolic volume. Moderately decreased left ventricular ejection fraction. Left ventricular wall thickness normal. Basal inferolateral wall hypokinesia Right Ventricle Normal right ventricular size and function. Right ventricular systolic pressure within normal limits. Right Atrium Normal right atrial size. Left Atrium Normal left atrial size. Mitral Valve Structurally normal mitral valve. Trace mitral regurgitation. No mitral stenosis. Aortic Valve Trileaflet aortic valve. No aortic stenosis. No aortic regurgitation. Tricuspid Valve Structurally normal tricuspid valve. Pulmonic Valve Structurally normal pulmonic valve. Trace pulmonic regurgitation. No pulmonic stenosis. Pericardium No pericardial or pleural effusion. Aorta Normal size aortic root and proximal ascending aorta. CONCLUSIONS Left ventricular ejection fraction is estimated at 30-35%. Mildly increased LV cavity size Basal inferolateral wall hypokinesia No significant valvular dysfunction Previewed by: Dr Maximino Yo (Electronically Signed) Final Date: 27 April 2024 13:11
--- NOTE | 2024-06-12 10:42 | P.OP ---
Date of Procedure: 04/28/24 Description of Procedure: Preoperative diagnosis: Carotid stenosis, discordance on imaging Postoperative diagnosis: Same Procedure: Ultrasound-guided left radial artery access Placement of catheter in aorta Aortic arch angiogram Selective right carotid angiogram, second order Selective left carotid angiogram second-order Moderate conscious sedation with personal monitoring certified RN administration and personal hemodynamic monitoring for 27 minutes Surgeon: Chely Crowell D.O. EBL: Less than 5 cc IV fluids: See records Urine output: Not measured Drains: None Complications: None immediately apparent Condition: Stable to recovery Operative indication and findings: Patient is a 68 a-year-old history of discordance on imaging and mental status changes consistent with a TIA. Due to this is recommended he undergo cerebral angiogram. Risks and benefits including but not limited to bleeding, infection, injury to the vessel, stroke, cardiopulmonary risks and ischemic changes to the extremities were discussed. They seemingly understood this willing to proceed. Procedure in detail: Patient was taken to the special suite and placed in supine position. The [left] upper extremity was prepped and draped in usual sterile fashion. A preprocedural timeout was performed, all parties were in agreement. Using the ultrasound, the radial artery was identified. The skin overlying was anesthetized with 1% lidocaine plain. The artery was patent without significant calcific disease and a permanent image was stored. Under direct visualization, the artery was accessed and Seldinger technique was used to place a 5 slender sheath. Catheters and wires were then used to selectively place a catheter across the subclavian, into the aortic arch and then selectively in the ascending thoracic aorta. Aortogram was performed. Individually, the right common carotid was selected with angiogram followed by selective angiogram of the left common carotid. After satisfactory images, catheters and wires were removed. The sheath was removed and a TR band was placed. Angiographic interpretation: The aortic arch. Normal, a type II aortic arch no significant disease. The visualized portion of the brachiocephalic, right subclavian appeared patent without significant disease. The right common carotid appears patent without significant disease. There is high-grade greater than 90% stenosis of the right internal carotid artery. Patent external carotid artery. On the left, the common carotid appears patent without significant disease. At the internal carotid artery per computer measurements there is approximately 70% stenosis of the left internal carotid artery due to likely a prestenotic dilation as well
--- NOTE | 2024-06-14 10:10 | CT ---
EXAM: CT Head Without Intravenous Contrast CLINICAL HISTORY: lt sided head pain, blurry TECHNIQUE: Axial computed tomography images of the head/brain without intravenous contrast. CTDI is 30.46 mGy and DLP is 536.8 mGy-cm. This CT exam was performed using one or more of the following dose reduction techniques: automated exposure control, adjustment of the mA and/or kV according to patient size, and/or use of iterative reconstruction technique. Mild motion artifact. COMPARISON: None. FINDINGS: Brain:No mass effect or acute infarct. No acute hemorrhage. Mild atrophy and chronic white matter disease. Ventricles:No hydrocephalus or midline shift. Bones/joints:No skull fracture. Soft tissues:No scalp hematoma. Visualized Sinuses:Generally clear. Mastoid air cells:No mastoid effusion. IMPRESSION: 1. Mild age-related findings. 2. No acute infarct, bleed, or acute intracranial abnormality. EXAM: CT Angiography Head With Intravenous Contrast CLINICAL HISTORY: lt sided head pain, blurry TECHNIQUE: Axial computed tomographic angiography images of the head with intravenous contrast. CTDI is 30.46 mGy and DLP is 536.8 mGy-cm. This CT exam was performed using one or more of the following dose reduction techniques: automated exposure control, adjustment of the mA and/or kV according to patient size, and/or use of iterative reconstruction technique. 65 mL Isovue 370 given IV. MIP reconstructed images were created and reviewed. Moderate motion artifact. COMPARISON: None. FINDINGS: Right internal carotid artery: Patent. Right anterior cerebral artery: Patent. Right middle cerebral artery: Patent. Right posterior cerebral artery: Patent. Right vertebral artery: Patent. Left internal carotid artery: Patent. Left anterior cerebral artery: Patent. Left middle cerebral artery: Patent. Left posterior cerebral artery: Patent. Left vertebral artery: Patent. Basilar artery: Patent. Other: Moderate atherosclerotic calcification bilateral cavernous ICA. Limited evaluation for stenosis and branch vessel occlusion due to significant motion artifact. IMPRESSION: 1. No aneurysm or large vessel occlusion. 2. Stenosis and branch vessel occlusion can be missed given moderate motion artifact. EXAM: CT Angiography Neck With Intravenous Contrast CLINICAL HISTORY: lt sided head pain, blurry TECHNIQUE: Routine carotid CT angiography protocol was performed with intravenous contrast. NASCET criteria using the distal ICAs for comparison were used for evaluation of stenoses. CTDI is 30.46 mGy and DLP is 536.8 mGy-cm. This CT exam was performed using one or more of the following dose reduction techniques: automated exposure control, adjustment of the mA and/or kV according to patient size, and/or use of iterative reconstruction technique. 65 mL Isovue 370 given IV. MIP reconstructed images were created and reviewed. COMPARISON: None. FINDINGS: Right common carotid artery: Patent. Right internal carotid artery:Dense atherosclerotic calcification, with severe, 80-90%stenosis. Right vertebral artery: Patent. Left common carotid artery: Patent. Left internal carotid artery: Patent. Dense atherosclerotic calcification, with motion artifact limiting evaluation, cannot rule out severe, 80-90%stenosis axial series 501/87. Left vertebral artery: Patent. Codominant. Other: Emphysema. Scattered thyroid calcifications and peripheral calcified subcentimeter right thyroid nodule. IMPRESSION: 1. Severe RIGHT proximal ICA stenosis, 80-90%. 2. Questionable severe LEFT ICA stenosis, limited by motion artifact. 3. No other dissection/occlusion/significant stenosis. CAROTID STENOSIS REFERENCE USING NASCET CRITERIA: %ICA stenosis = (1 - narrowest ICA diameter/diameter of distal cervical ICA) x 100. Mild - <50%stenosis. Moderate - 50-69%stenosis. Severe - 70-94%stenosis. Near occlusion - 95-99%stenosis. Occluded - 100%stenosis. Radiologist: Nadya Rome M.D. Electronically Signed: 04/25/24 00:12 Study first marked ready to read at 23:47, study last marked ready to read at 23:47, initial results transmitted at 00:12 Communications: Clear Time Type Notes 04/25/24 00:28 Verify Receipt Verified receipt with Dr. Davidson on 04/25 00:28 (-04:00 [facility]
--- NOTE | 2024-06-14 10:13 | CT ---
EXAM: CT Abdomen and Pelvis Without Intravenous Contrast CLINICAL HISTORY: r/o ischemic bowel TECHNIQUE: Axial computed tomography images of the abdomen and pelvis without intravenous contrast. CTDI is 8.4 mGy and DLP is 520.3 mGy-cm. This CT exam was performed using one or more of the following dose reduction techniques: automated exposure control, adjustment of the mA and/or kV according to patient size, and/or use of iterative reconstruction technique. COMPARISON: No relevant prior studies available. FINDINGS: Limitations: Limited evaluation in the absence of contrast. Lung bases: Mild dependent atelectatic changes. Heart:Cardiomegaly. ABDOMEN: Liver:Hepatic steatosis. Gallbladder and bile ducts:Unremarkable. No calcified stones. No ductal dilation. Pancreas:Unremarkable. No ductal dilation. Spleen:Unremarkable. No splenomegaly. Adrenals:Unremarkable. No mass. Kidneys and ureters:No evidence of radiopaque renal calculi or signs of collecting system dilatation. Excretory phase within the kidneys with contrast in the bladder. Stomach and bowel:No evidence of bowel obstruction. No mucosal thickening. PELVIS: Appendix:No findings to suggest acute appendicitis. Bladder:Contrast within the bladder. Reproductive:Unremarkable as visualized. ABDOMEN and PELVIS: Intraperitoneal space:Unremarkable. No free air. No significant fluid collection. Bones/joints:Degenerative changes in the spine. No acute fracture. No dislocation. Soft tissues:Umbilical hernia containing fat. Vasculature:Atherosclerotic disease. No abdominal aortic aneurysm. Lymph nodes:Unremarkable. No enlarged lymph nodes. IMPRESSION: 1. Limited evaluation in the absence of contrast. 2. No evidence of radiopaque renal calculi or signs of collecting system dilatation. 3. If there is further concern for bowel ischemia, consider CT mesenteric protocol. Radiologist: Rory Carbajal MD Electronically Signed: 04/25/24 05:46 Study first marked ready to read at 04:18, study last marked ready to read at 04:19, initial results transmitted at 05:[facility]
--- NOTE | 2024-06-14 23:47 | IR ---
EXAMINATION TYPE: IR angio carotid cerv BILAT Intraoperative/procedural fluoroscopic services were pr ovided. CLINICAL INDICATION:Male, 68 years old with history of syncope, 10.3min fluoro, [id number]; , [facility] Total fluoroscopy time is 10.3 min. DAP: 15.0 Gycm2 Please see the operative/procedural note for further details. [facility], , 06/14/2024 11:45 PM
--- NOTE | 2024-06-17 11:52 | PN ---
PROGRESS NOTE DATE OF SERVICE: 05/02/2024 CHIEF COMPLAINT: CVA. HISTORY OF PRESENT ILLNESS: This gentleman is stable and is apparently going to the operating room for right carotid endarterectomy. PHYSICAL EXAMINATION: GENERAL: He is awake and alert. VITAL SIGNS: Normal. HEENT: He still has a left-sided face droop. CHEST: Clear. CARDIAC: Normal. ABDOMEN: Soft, nontender. IMPRESSION: 1. Right-sided cerebrovascular accident with left facial droop. 2. Carotid occlusive disease. 3. Atherosclerotic cardiovascular disease. 4. Chronic obstructive pulmonary disease. PLAN: Carotid endarterectomy, possibly today. MMODL / IJN: [id number] /
--- NOTE | 2024-06-17 11:52 | PN ---
PROGRESS NOTE DATE OF SERVICE: 05/01/2024 CHIEF COMPLAINT: CVA. HISTORY OF PRESENT ILLNESS: This gentleman is doing well. He is having no problems. He is up and about. He is going for a right carotid endarterectomy tomorrow. PHYSICAL EXAMINATION: CHEST: Clear. CARDIAC: Normal. ABDOMEN: Soft, nontender. He still has a minimal left facial droop. IMPRESSION: 1. Cerebrovascular accident. 2. Carotid occlusive disease. 3. Atherosclerotic cardiovascular disease. 4. Chronic obstructive pulmonary disease. PLAN: Carotid endarterectomy tomorrow. MMODL / IJN: [id number] /
--- NOTE | 2024-06-17 11:52 | DS ---
DISCHARGE SUMMARY CHIEF COMPLAINT: Left-sided weakness and hypesthesia. HISTORY OF PRESENT ILLNESS AND PHYSICAL EXAMINATION: Details of this man's history and physical can be found in the initial workup. LABORATORY STUDIES: While he is in the hospital, he had laboratory studies, details of which could be found in the laboratory section of his chart. COURSE IN THE HOSPITAL: After admission, he was placed on bedrest, started on intravenous fluids and was found to have bilateral carotid stenoses particularly marked on the right. Seen by Vascular Surgery and taken for right carotid endarterectomy, from which he did well. He was doing well and felt he would be discharged on . He will go home on light activity and regular diet and will follow up in the office. He is admonished to stop smoking and give up alcohol. On the left, he still had some left-sided facial weakness. IMPRESSION: 1. Right-sided transient ischemic attack. 2. Atherosclerotic cardiovascular disease. 3. Carotid occlusive disease. 4. Chronic obstructive pulmonary disease. 5. Alcoholism. OPERATION: Right carotid endarterectomy. CONSULTATION: Vascular Surgery. MMMADISON / IJN: [id number] /
== END 2024-05-03 18:15 | disposition home or self-care (01) | DRG 26 ==
LOC: OBSVTOIN 06:52 → 2SICU 06:52 → UNDODISOB 05-03 18:20
PROVIDERS: ADMIT Family Medicine; ATTEND Family Medicine
PROC: HZ2ZZZZ Detoxification Services for Substance Abuse Treatment (ICD-10-PCS; 2024-04-25)
PROC: B3131ZZ Fluoroscopy of Right Common Carotid Artery using Low Osmolar Contrast (ICD-10-PCS; 2024-04-28)
PROC: B3141ZZ Fluoroscopy of Left Common Carotid Artery using Low Osmolar Contrast (ICD-10-PCS; 2024-04-28)
PROC: B4101ZZ Fluoroscopy of Abdominal Aorta using Low Osmolar Contrast (ICD-10-PCS; 2024-04-28)
PROC: 03CH3ZZ Extirpation of Matter from Right Common Carotid Artery, Percutaneous Approach (ICD-10-PCS; principal; 2024-04-28 11:07)
PROC: 03CJ3ZZ Extirpation of Matter from Left Common Carotid Artery, Percutaneous Approach (ICD-10-PCS; 2024-04-28 11:07)
DX: G45.9 Transient cerebral ischemic attack, unspecified (principal); E87.20 Acidosis, unspecified; I42.9 Cardiomyopathy, unspecified; H53.2 Diplopia; I65.23 Occlusion and stenosis of bilateral carotid arteries; R29.810 Facial weakness; R47.1 Dysarthria and anarthria; R11.2 Nausea with vomiting, unspecified; R42 Dizziness and giddiness; R13.10 Dysphagia, unspecified; R10.9 Unspecified abdominal pain; E87.6 Hypokalemia; I10 Essential (primary) hypertension; I45.10 Unspecified right bundle-branch block; D75.89 Other specified diseases of blood and blood-forming organs; J44.9 Chronic obstructive pulmonary disease, unspecified; I25.10 Atherosclerotic heart disease of native coronary artery without angina pectoris; F10.20 Alcohol dependence, uncomplicated; Z72.0 Tobacco use; Z79.82 Long term (current) use of aspirin; Z79.02 Long term (current) use of antithrombotics/antiplatelets; Z79.899 Other long term (current) drug therapy; Z82.3 Family history of stroke
CPT/HCPCS: 36222; 36223; 70450; 70496; 70498; 70551; 74176; 80061; 82607; 82746; 83036; 86850; 86900; 86901; 88304; 88311; 93306; 93880; 94640; 94760

== ENCOUNTER → 2024-05-02 | Day surgery (SDC) | payer MEDICARE, OTHER | LOC: OR 11:45 | PROVIDERS: ATTEND Surgery | DX: I35.0 Nonrheumatic aortic (valve) stenosis (principal) ==

== ENCOUNTER 2024-07-11 12:20 | Emergency (ER) | payer MEDICARE, OTHER ==
[2024-07-11 12:35] VITALS: TEMP 98.6
--- NOTE | 2024-07-11 12:56 | ED ---
Weakness HPI - General Chief complaint: Back Pain/Injury Stated complaint: BACK PAIN Time Seen by Provider: 07/11/24 12:39 Source: patient, RN notes reviewed, old records reviewed Mode of arrival: ambulatory Limitations: no limitations - History of Present Illness Initial comments: This is a 68-year-old male to the ER for evaluation of weakness today. Patient has significant weakness back pain generalized bodyaches and pains difficulty with walking overall generalized weakness, patient is on medications which she is unsure of, patient states he is just been feeling worse with increasing pain unsure of how long, patient does seem to be a poor historian MD Complaint: generalized weakness, lack of energy, difficulty walking -: days(s) Location: generalized Severity: moderate Severity scale (1-10): 4 Quality: aching Consistency: constant Improves with: none, evening Context: recent illness, history of similar Associated Symptoms: loss of appetite, shortness of breath - Related Data Home Medications Medication Instructions Recorded Confirmed Albuterol Sulfate [Proair Hfa] 2 puff INHALATION RT-QID PRN 11/17/21 03/03/24 Budesonide-Formot 160-4.5 Mcg 2 puff INHALATION RT-BID PRN 11/17/21 03/03/24 [Symbicort 160-4.5 Mcg Inhaler] Amoxicillin 500 mg PO TID 03/03/24 03/03/24 Ibuprofen [Motrin] 800 mg PO Q4H PRN 03/03/24 03/03/24 Metoprolol Succinate (ER) [Toprol 50 mg PO DAILY 03/03/24 03/03/24 Xl] Previous Rx's Medication Instructions Recorded Azithromycin [Zithromax Z Pack] 0 tab PO DIRECTED #6 tab 03/03/24 Allergies Allergy/AdvReac Type Severity Reaction Status Date / Time No Known Allergies Allergy Verified 07/11/24 12:34 Review of Systems ROS Statement: Those systems with pertinent positive or pertinent negative responses have been documented in the HPI. ROS Other: All systems not noted in ROS Statement are negative. Past Medical History Past Medical History: Hyperlipidemia, Hypertension, Osteoarthritis (OA) Additional Past Medical History / Comment(s): RLD History of Any Multi-Drug Resistant Organisms: None Reported Past Surgical History: Orthopedic Surgery Additional Past Surgical History / Comment(s): L leg ortho surgery, Past Anesthesia/Blood Transfusion Reactions: No Reported Reaction, Motion Sickness Past Psychological History: No Psychological Hx Reported Smoking Status: Current every day smoker Past Alcohol Use History: Abuse, Daily, Heavy Past Drug Use History: None Reported - Past Family History Father Additional Family Medical History / Comment(s): Father in his mid to late 60s-pt was told cause of was because his "heart blew up" Mother Family Medical History: CVA/TIA, Diabetes Mellitus Additional Family Medical History / Comment(s): Mother had a CVA. Sister(s) Family Medical History: CVA/TIA, Diabetes Mellitus Additional Family Medical History / Comment(s): Pts twin sister of a CVA in her mid 50s. Brother(s) Family Medical History: CVA/TIA, Diabetes Mellitus Additional Family Medical History / Comment(s): Brother had CVA General Exam Limitations: no limitations General appearance: alert, in no apparent distress Head exam: Present: atraumatic, normocephalic, normal inspection Eye exam: Present: normal appearance, PERRL, EOMI. Absent: scleral icterus, conjunctival injection, periorbital swelling ENT exam: Present: normal exam, mucous membranes moist Neck exam: Present: normal inspection. Absent: tenderness, meningismus, lymphadenopathy Respiratory exam: Present: normal lung sounds bilaterally. Absent: respiratory distress, wheezes, rales, rhonchi, stridor Cardiovascular Exam: Present: regular rate, normal rhythm, normal heart sounds. Absent: systolic murmur, diastolic murmur, rubs, gallop, clicks GI/Abdominal exam: Present: soft, normal bowel sounds. Absent: distended, tenderness, guarding, rebound, rigid Extremities exam: Present: normal inspection, full ROM, normal capillary refill. Absent: tenderness, pedal edema, joint swelling, calf tenderness Back exam: Present: normal inspection Neurological exam: Present: alert, oriented X3, CN II-XII intact Psychiatric exam: Present: normal affect, normal mood Skin exam: Present: warm, dry, intact, normal color. Absent: rash Course Vital Signs 07/11/24 07/11/24 07/11/24 12:31 13:12 13:17 Temperature 98.6 F Pulse Rate 89 87 81 Respiratory 18 Rate Blood Pressure 110/73 O2 Sat by Pulse 97 Oximetry 07/11/24 17:09 Temperature Pulse Rate 98 Respiratory 16 Rate Blood Pressure 168/89 O2 Sat by Pulse 94 L Oximetry - Reevaluation(s) Reevaluation #1: 07/11/24 12:55 Medical records reviewed Reevaluation #2: 07/11/24 12:55 Patient symptoms unchanged Reevaluation #3: 07/11/24 16:43 Patient informed of results and questions answered Reevaluation #4: Was pt. sent in by a medical professional or institution (, ALEJANDRO, ENVIRONMENTAL PROPERTY ASSESSOR, urgent care, hospital, or assisted...) When possible be specific @ -no Did you speak to anyone other than the patient for history (EMS, parent, family, police, friend...)? What history was obtained from this source @ -no Did you review nursing and triage notes (agree or disagree)? Why? @ -agree Are old charts reviewed (outside hosp., previous admission, EMS record, old EKG, old radiological studies, urgent care reports/EKG's, assisted records)? Report findings @ -yes Differential Diagnosis (chest pain, altered mental status, abdominal pain women, abdominal pain men, vaginal bleeding, weakness, fever, dyspnea, syncope, headache, dizziness, GI bleed, back pain, seizure, CVA, palpatations, mental health, musculoskeletal)? @ -prior EKG interpreted by me (3pts min.). @ -no X-rays interpreted by me (1pt min.). @ -yes negative for acute disease CT interpreted by me (1pt min.). @ -Yes negative for acute disease U/S interpreted by me (1pt. min.). @ -no What testing was considered but not performed or refused? (CT, X-rays, U/S, labs)? Why? @ -none What meds were considered but not given or refused? Why? @ -none Did you discuss the management of the patient with other professionals (professionals i.e. , ALEJANDRO, ENVIRONMENTAL PROPERTY ASSESSOR, lab, RT, psych nurse, manager social responsibility, machine repairer maintenance, teacher, commanding officer garage, case repairer)? Give summary @ -no Was smoking cessation discussed for >3mins.? @ -no Was critical care preformed (if so, how long)? @ -no Were there social determinants of health that impacted care today? How? (Homelessness, low income, unemployed, alcoholism, drug addiction, transportation, low edu. Level, literacy, decrease access to med. care, skilled nursing, rehab)? @ -none Was there de-escalation of care discussed even if they declined (Discuss DNR or withdrawal of care, Hospice)? DNR status @ -no What co-morbidities impacted this encounter? (DM, HTN, Smoking, COPD, CAD, Cancer, CVA, ARF, Chemo, Hep., AIDS, mental health diagnosis, sleep apnea, morbid obesity)? @ -none Was patient admitted / discharged? Hospital course, mention meds given and route, prescriptions, significant lab abnormalities, going to OR and other pertinent info. @ - 68 male to ER for evaluation of back pain no acute other findings noted except for intoxication. Patient okay to discharge home Discharge Undiagnosed new problem with uncertain prognosis? @ -no Drug Therapy requiring intensive monitoring for toxicity (Heparin, Nitro, Insulin, Cardizem)? @ -no Were any procedures done? @ -no Diagnosis/symptom? @ -Back pain Acute, or Chronic, or Acute on Chronic? @ -Acute Uncomplicated (without systemic symptoms) or Complicated (systemic symptoms)? @ -Complicated Side effects of treatment? @ -no Exacerbation, Progression, or Severe Exacerbation? @ -exacerbation Poses a threat to life or bodily function? How? (Chest pain, USA, NE, pneumonia, PE, COPD, DKA, ARF, appy, cholecystitis, CVA, Diverticulitis, Homicidal, Suicidal, threat to staff... and all critical care pts) @ -yes alcohol intoxication Reevaluation #5: Differential Weakness: Hypoglycemia, shock, sepsis, hyponatremia, anemia, infection, NE, ETOH, adverse medicine reaction, overdose, stroke, this is not meant to be an all-inclusive list. Medical Decision Making - Medical Decision Making 68 male to ER for evaluation of back pain no acute other findings noted except for intoxication. Patient okay to discharge home - Lab Data Result diagrams: 07/11/24 15:36 07/11/24 15:36 Lab Results 07/11/24 07/11/24 07/11/24 Range/Units 15:36 15:36 15:36 WBC 6.3 (3.8-10.6) k/uL RBC 3.44 L (4.30-5.90) m/uL Hgb 13.3 (13.0-17.5) gm/dL Hct 40.7 (39.0-53.0) % MCV 118.5 H (80.0-100.0) fL MCH 38.8 H (25.0-35.0) pg MCHC 32.7 (31.0-37.0) g/dL RDW 15.3 (11.5-15.5) % Plt Count 236 (150-450) k/uL MPV 7.1 Neutrophils % 65 % Lymphocytes % 25 % Monocytes % 5 % Eosinophils % 2 % Basophils % 1 % Neutrophils # 4.0 (1.3-7.7) k/uL Lymphocytes # 1.6 (1.0-4.8) k/uL Monocytes # 0.3 (0-1.0) k/uL Eosinophils # 0.1 (0-0.7) k/uL Basophils # 0.1 (0-0.2) k/uL Manual Slide Review Performed Hypochromasia Slight Macrocytosis Marked A Sodium 141 (137-145) mmol/L Potassium 3.9 (3.5-5.1) mmol/L Chloride 111 H (98-107) mmol/L Carbon Dioxide 17 L (22-30) mmol/L Anion Gap 13 mmol/L BUN 12 (9-20) mg/dL Creatinine 0.85 (0.66-1.25) mg/dL Est GFR (CKD-EPI)AfAm >90 (>60 ml/min/1.73 sqM) Est GFR (CKD-EPI)NonAf >90 (>60 ml/min/1.73 sqM) Glucose 70 L (74-99) mg/dL Calcium 8.8 (8.4-10.2) mg/dL Phosphorus 2.6 (2.5-4.5) mg/dL Magnesium 1.7 (1.6-2.3) mg/dL Total Bilirubin 0.9 (0.2-1.3) mg/dL AST 114 H (17-59) U/L ALT 60 H (4-49) U/L Alkaline Phosphatase 214 H (38-126) U/L Creatine Kinase 105 (55-170) U/L Troponin I 0.037 H* (0.000-0.034) ng/mL Total Protein 6.8 (6.3-8.2) g/dL Albumin 4.3 (3.5-5.0) g/dL Lipase 103 (23-300) U/L Serum Alcohol 185 mg/dL - Radiology Data Radiology results: report reviewed (X-ray chest and L-spine negative for acute disease), image reviewed Disposition Clinical Impression: Mechanical back pain, Alcohol intoxication Disposition: HOME SELF-CARE Condition: Good Instructions (If sedation given, give patient instructions): Acute Low Back Pain (ED) Is patient prescribed a controlled substance at d/c from ED?: No Referrals: Paulo Hall MD [Primary Care Provider] - 1-2 days Time of Disposition: 16:40
[2024-07-11] MEDS: IPRATROPIUM-ALBUTEROL 3 ML NEB INHALATION STA (13:11)
[2024-07-11] MEDS: HYDROmorphone 1 MG/ML 1 ML SYRINGE IM STA (13:57)
--- NOTE | 2024-07-11 15:31 | XR ---
EXAMINATION TYPE: XR chest 1V portable DATE OF EXAM: 07/11/2024 COMPARISON: 03/03/2024 INDICATION: Pain TECHNIQUE: Frontal views of the chest are obtained. FINDINGS: The heart size is enlarged. The pulmonary vasculature is normal. The lungs are clear. IMPRESSION: 1. Cardiomegaly. [facility], Workstation: [facility], 07/11/2024 3:28 PM
[2024-07-11] MEDS: ACETAMINOPHEN TAB 500 MG TAB PO STA (15:36)
--- NOTE | 2024-07-11 15:39 | XR ---
EXAMINATION TYPE: XR lumbar spine 2 or 3V DATE OF EXAM: 07/11/2024 COMPARISON: CT 04/25/2024 HISTORY: Pain mid to lower back radiating to his epigastric region TECHNIQUE: 3 view lumbar spine FINDINGS: There are 5 lumbar-type vertebral bodies. Pedicles are intact. Degenerative disc changes present L1-2. Superior endplate compression deformity is present at L2 with approximately 30% loss of superior vert ebral body height. There is diffuse loss of vertebral body height of L5. These compression deformitie s are new from 04/25/2024. No obvious posterior wall displacement evident. IMPRESSION: 1. New compression deformities L2 and L5. [facility], Workstation: [facility], 07/11/2024 3:37 PM
[2024-07-11] MEDS: SODIUM CHLORIDE 0.9% 1,000 ML IV STA (15:41)
[2024-07-11] MEDS: MORPHINE SULFATE 4 MG/ML SYRINGE IV STA (15:41)
[2024-07-11] MEDS: SODIUM CHLORIDE 0.9% 500 ML 500 ML IV STA (15:41)
[2024-07-11 15:54] LABS: Basophils # (A) 0.1 k/uL (0-0.2); Basophils % (A) 1 %; Eosinophils # (A) 0.1 k/uL (0-0.7); Eosinophils % (A) 2 %; HCT 40.7 % (39.0-53.0); HGB 13.3 gm/dL (13.0-17.5); Hypochromasia Slight; Lymphocytes # (A) 1.6 k/uL (1.0-4.8); Lymphocytes % (A) 25 %; MCH 38.8 pg (25.0-35.0); MCHC 32.7 g/dL (31.0-37.0); MCV 118.5 fL (80.0-100.0); Macrocytosis Marked; Mean Platelet Volume 7.1; Monocytes # (A) 0.3 k/uL (0-1.0); Monocytes % (A) 5 %; Neutrophils % (A) 65 %; Platelet Count 236 k/uL (150-450); RBC 3.44 m/uL (4.30-5.90); RDW 15.3 % (11.5-15.5); WBC 6.3 k/uL (3.8-10.6)
[2024-07-11 15:56] LABS: ALT 60 U/L (4-49); AST 114 U/L (17-59); African American GFR (CKD) >90 (>60 ml/min/1.73 sqM); Albumin 4.3 g/dL (3.5-5.0); Alkaline Phosphatase 214 U/L (38-126); Anion Gap 13 mmol/L; Blood Urea Nitrogen 12 mg/dL (9-20); Calcium 8.8 mg/dL (8.4-10.2); Carbon Dioxide 17 mmol/L (22-30); Chloride 111 mmol/L (98-107); Creatine Kinase 105 U/L (55-170); Glucose 70 mg/dL (74-99); Lipase 103 U/L (23-300); Magnesium 1.7 mg/dL (1.6-2.3); Non-African American GFR(CKD) >90 (>60 ml/min/1.73 sqM); Phosphorus 2.6 mg/dL (2.5-4.5); Potassium 3.9 mmol/L (3.5-5.1); Sodium 141 mmol/L (137-145); Total Bilirubin 0.9 mg/dL (0.2-1.3); Total Protein 6.8 g/dL (6.3-8.2)
[2024-07-11 16:16] LABS: Alcohol 185 mg/dL
[2024-07-11] MEDS: ONDANSETRON 4 MG/2 ML VIAL IVP STA (16:54)
[2024-07-11 17:10] VITALS: BP 168/89; PULSE 98; RESP 16
== END 2024-07-11 17:34 | disposition home or self-care (01) ==
LOC: EC 12:20
DX: M54.9 Dorsalgia, unspecified (principal); F10.129 Alcohol abuse with intoxication, unspecified; F17.200 Nicotine dependence, unspecified, uncomplicated; Y90.6 Blood alcohol level of 120-199 mg/100 ml
CPT/HCPCS: 36415; 94640; 80053; 82550; 83690; 83735; 84100; 84484; 85025; 72100; 71045; 99284; 96374; 96361; 96372; G0480; J2270; J1171; 80320

== ENCOUNTER 2024-08-28 21:47 | Observation (INO) | payer MEDICARE, OTHER ==
[2024-08-28] MEDS: SODIUM CHLORIDE 0.9% 1,000 ML IV STA (22:05)
--- NOTE | 2024-08-28 22:25 | ED ---
Abdominal Pain HPI - General Chief Complaint: Abdominal Pain Stated Complaint: ABD Pain Source: patient, EMS Mode of arrival: EMS Limitations: no limitations - History of Present Illness Initial Comments: Patient is a 68-year-old male PMH alcoholism, HTN, presenting for LLQ abdominal pain x 2 weeks worsening tonight. Describes as "grabbing pain" and constant. Denies changes with positions, exacerbating or relieving factors. No medications trialed prior to arrival. He endorses feelings of hot and cold but denies fevers or chills. States he has had decreased appetite over the last 4 days and has "not eaten anything". Last bowel movement was 2 days ago and was loose and small in volume. No black or bloody color to it. Denies nausea or emesis. Prior abdominal surgeries. Denies hematuria or dysuria. Denies chest pain but does state he feels short of breath with lying flat. Endorses cough productive of clear sputum, denies hemoptysis. No history of prior PE/DVT. He does drink about a half a gallon of vodka a day. Not on blood thinners. Endorses generalized weakness. Of note, patient does live fairly remotely, in a cabin in the [facility]. EMS state there were about 30 cats in home. - Related Data Home Medications Medication Instructions Recorded Confirmed Albuterol Sulfate [Proair Hfa] 2 puff INHALATION RT-QID PRN 11/17/21 03/03/24 Budesonide-Formot 160-4.5 Mcg 2 puff INHALATION RT-BID PRN 11/17/21 03/03/24 [Symbicort 160-4.5 Mcg Inhaler] Amoxicillin 500 mg PO TID 03/03/24 03/03/24 Ibuprofen [Motrin] 800 mg PO Q4H PRN 03/03/24 03/03/24 Metoprolol Succinate (ER) [Toprol 50 mg PO DAILY 03/03/24 03/03/24 Xl] Previous Rx's Medication Instructions Recorded Azithromycin [Zithromax Z Pack] 0 tab PO DIRECTED #6 tab 03/03/24 Allergies Allergy/AdvReac Type Severity Reaction Status Date / Time No Known Allergies Allergy Verified 08/28/24 21:54 Review of Systems ROS Statement: Those systems with pertinent positive or pertinent negative responses have been documented in the HPI. ROS Other: All systems not noted in ROS Statement are negative. Past Medical History Past Medical History: Hyperlipidemia, Hypertension, Osteoarthritis (OA) Additional Past Medical History / Comment(s): RLD History of Any Multi-Drug Resistant Organisms: None Reported Past Surgical History: Orthopedic Surgery Additional Past Surgical History / Comment(s): L leg ortho surgery, Past Anesthesia/Blood Transfusion Reactions: No Reported Reaction, Motion Sickness Past Psychological History: No Psychological Hx Reported Smoking Status: Current every day smoker Past Alcohol Use History: Abuse, Daily, Heavy Past Drug Use History: None Reported - Past Family History Father Additional Family Medical History / Comment(s): Father in his mid to late 60s-pt was told cause of was because his "heart blew up" Mother Family Medical History: CVA/TIA, Diabetes Mellitus Additional Family Medical History / Comment(s): Mother had a CVA. Sister(s) Family Medical History: CVA/TIA, Diabetes Mellitus Additional Family Medical History / Comment(s): Pts twin sister of a CVA in her mid 50s. Brother(s) Family Medical History: CVA/TIA, Diabetes Mellitus Additional Family Medical History / Comment(s): Brother had CVA General Exam - General Exam Comments Initial Comments: PE: CONSTITUTIONAL: No apparent distress, appears disheveled, smells strongly of alcohol SKIN: Warm, dry, no jaundice, hives or petechiae EYES: Pupils are equally round, extraocular movements intact without nystagmus, clear conjunctiva, non-icteric sclera HENT: Normocephalic, atraumatic, dry mucus membranes, oropharynx clear without exudates NECK: , Full range of motion, normal appearance PULMONARY: Clear to auscultation without wheezes, rhonchi, or rales, normal excursion, no accessory muscle use and no stridor CARDIOVASCULAR: Regular rate, rhythm, normal S1 and S2. No appreciated murmurs, rubs or gallops. Strong radial pulses with intact distal perfusion. No lower extremity edema GASTROINTESTINAL: Soft, active bowel sounds throughout, tenderness to light palpation of the left lower quadrant and epigastrium, negative Coreas sign, neg ative McBurney's point, no masses palpated, no bruits, guarding with palpation of lower quadrant, no CVA tenderness, no hepatosplenomegaly GENITOURINARY: MUSCULOSKELETAL: Extremities have no gross deformity, no edema, redness, or swelling. No calf swelling NEUROLOGIC:_a/o x 3, GCS 15, normal mentation and speech. Moves all extremities x 4 without motor or sensory deficit PSYCHIATRIC:_normal mood and affect, thought process is clear and linear Limitations: no limitations Course Vital Signs 08/28/24 08/28/24 08/29/24 21:51 23:05 02:11 Temperature 97.6 F Pulse Rate 90 86 103 H Respiratory 18 18 18 Rate Blood Pressure 143/76 121/76 135/90 O2 Sat by Pulse 95 95 93 L Oximetry 08/29/24 05:21 Temperature Pulse Rate 98 Respiratory 22 Rate Blood Pressure 123/83 O2 Sat by Pulse 96 Oximetry Medical Decision Making - Medical Decision Making Was pt. sent in by a medical professional or institution (, PA, SHIP CAPTAIN, urgent care, hospital, or snf...) When possible be specific @ -No Did you speak to anyone other than the patient for history (EMS, parent, family, police, friend...)? What history was obtained from this source @ -Spoke with EMS personnel who provided history noted in HPI including patient's current state of living Did you review nursing and triage notes (agree or disagree)? Why? @ -I reviewed and agree with nursing and triage notes Were old charts reviewed (outside hosp., previous admission, EMS record, old EKG, old radiological studies, urgent care reports/EKG's, snf records)? Report findings @Medical records reviewed, patient last here for back pain in June 2024, patient's medication list, I see no blood thinners prescribed the patient Differential Diagnosis (chest pain, altered mental status, abdominal pain women, abdominal pain men, vaginal bleeding, weakness, fever, dyspnea, syncope, headache, dizziness, GI bleed, back pain, seizure, CVA, palpatations, mental health, musculoskeletal)? @Differential Abdominal Pain Men: Appendicitis, cholecystitis, diverticulosis, ischemic bowel, pancreatitis, hepatitis, UTI, gastroenteritis, AAA, incarcerated hernia, bowel obstruction, constipation, inflammatory bowel, hepatitis, peptic ulcer disease, splenic infarction, perforated viscus, testicular torsion, this is not meant to be an all-inclusive list EKG interpreted by me (3pts min.). @Sinus rhythm, 83 bpm, NJ interval 177 ms, QRS duration 115 ms, QT/QTc 377/417 ms, borderline left axis deviation, [address] elevation in lead V1, otherwise no additional ST elevations or depressions, compared to EKG performed on 04/25/2024, lead V1 appears similar to prior EKG*this 1 mm elevation is not new, no other significant changes from prior EKG X-rays interpreted by me (1pt min.). @ -None done CT interpreted by me (1pt min.). Reviewed CT abdomen pelvis with contrast, does appear to have an area of contrast-enhancement left lower quadrant suspicious for colitis, but no free f luid or evidence of perforation. CT PE study shows no massive or submassive PE or saddle PE. He does appear to have some groundglass opacities bilaterally w/o obvious consolidations. U/S interpreted by me (1pt. min.). @ -None done What testing was considered but not performed or refused? (CT, X-rays, U/S, labs)? Why? @ -None What meds were considered but not given or refused? Why? @ -None Did you discuss the management of the patient with other professionals (professionals i.e. , PA, SHIP CAPTAIN, lab, RT, psych nurse, long term care social worker, customer complaint clerk, teacher, national insurance officer, telehealth case manager)? Give summary @ -No Was smoking cessation discussed for >3mins.? @ -No Was critical care preformed (if so, how long)? @ -No Were there social determinants of health that impacted care today? How? (Homelessness, low income, unemployed, alcoholism, drug addiction, transportation, low edu. Level, literacy, decrease access to med. care, detention, rehab)? @ -No Was there de-escalation of care discussed even if they declined (Discuss DNR or withdrawal of care, Hospice)? @ -No What co-morbidities impacted this encounter? (DM, HTN, Smoking, COPD, CAD, Cancer, CVA, ARF, Chemo, Hep., AIDS, mental health diagnosis, sleep apnea, morbid obesity)? @Alcoholism, HTN Was patient admitted / discharged? Hospital course, mention meds given and route, prescriptions, significant lab abnormalities, going to OR and other pertinent info. @ -Admission- this is a pleasant 68-year-old on history of alcoholism, hypertension presenting today for 2 weeks of left lower quadrant pain worse today. On my assessment patient is disheveled appearing stool strongly of alcohol however he is pleasant and cooperative. Physical exam as above. P atient did additionally note shortness of breath with lying flat so cardiac enzymes, D-dimer, BNP, EKG will be added to abdominal pain labs. I do plan to obtain a CT abdomen pelvis with contrast however will await D-dimer so that if PE study is indicated CT abdomen/pelvis does review with performance interpretation of PE study as well. Patient will be also provided with thiamine, folic acid and multivitamin given his history of alcoholism. Lipase, lites, CBC CMP, urinalysis magnesium and Phos levels ordered. IV fluids morphine Zofran for pain control. Patient is agreeable plan of care. I anticipate admission D-dimer elevated, CT PE study ordered, CT Abdo pelvis with contrast ordered. Lactic elevated ,I suspect most likely 2/2 alcoholism and dehydration, no leukocytosis noted, pt afebrile. Pt receiving IV fluids. Etoh 291. Labs also reflected macrocytic anemia ,suspect 2/2 alcoholism and poor intake. Reviewed CT abdomen pelvis with contrast, does appear to have an area of contr ast-enhancement left lower quadrant, but no free fluid or evidence of perforation. Ultimately read by radiologist as acute colitis, CT PE study shows no massive or submassive PE or saddle PE. He does appear to have some groundglass opacities bilaterally w/o obvious consolidations. Read by rad as n egative for PE, noted likely subacute thoracic spine fractures. Plan for admission for acute colitis as patient high risk w/ his hx of alcoholism and living so remotely. On reassessment patient comfortable, pain improved. Requesting something to eat. Discussed with him plan for admission due to colitis. Patient agreeable with POC. Patient admitted to Dr. Hall in stable condition. CIWA protocol ordered due to anticipate withdrawal w/ pt's hx alcoholism. Undiagnosed new problem with uncertain prognosis? @ -No Drug Therapy requiring intensive monitoring for toxicity (Heparin, Nitro, Insul in, Cardizem)? @ -No Were any procedures done? @ -No Diagnosis/symptom? @ -Colitis, alcohol intoxication Acute, or Chronic, or Acute on Chronic? @acute Uncomplicated (without systemic symptoms) or Complicated (systemic symptoms)? @ complicated Side effects of treatment? @ -No Exacerbation, Progression, or Severe Exacerbation? @ -No Poses a threat to life or bodily function? How? (Chest pain, [place], [place], pneumonia, PE, COPD, DKA, ARF, appy, cholecystitis, CVA, Diverticulitis, Homicidal, Suicidal, threat to staff... and all critical care pts) @ -No - Lab Data Result diagrams: 08/28/24 23:00 08/28/24 23:00 Lab Results 08/28/24 08/28/24 08/28/24 Range/Units 23:00 23:00 23:00 WBC 4.9 (3.8-10.6) k/uL RBC 2.96 L (4.30-5.90) m/uL Hgb 11.8 L (13.0-17.5) gm/dL Hct 34.8 L (39.0-53.0) % MCV 117.7 H (80.0-100.0) fL MCH 39.8 H (25.0-35.0) pg MCHC 33.8 (31.0-37.0) g/dL RDW 14.2 (11.5-15.5) % Plt Count 323 (150-450) k/uL MPV 6.8 Neutrophils % 55 % Lymphocytes % 31 % Monocytes % 9 % Eosinophils % 2 % Basophils % 1 % Neutrophils # 2.7 (1.3-7.7) k/uL Lymphocytes # 1.5 (1.0-4.8) k/uL Monocytes # 0.4 (0-1.0) k/uL Eosinophils # 0.1 (0-0.7) k/uL Basophils # 0.1 (0-0.2) k/uL Macrocytosis Marked A PT 10.2 (10.0-12.5) sec INR 0.9 (<1.2) APTT 20.8 L (22.0-30.0) sec D-Dimer 5.58 H (<0.60) mg/L FEU Sodium 139 (137-145) mmol/L Potassium 4.0 (3.5-5.1) mmol/L Chloride 110 H (98-107) mmol/L Carbon Dioxide 18 L (22-30) mmol/L Anion Gap 11 mmol/L BUN 14 (9-20) mg/dL Creatinine 0.93 (0.66-1.25) mg/dL Est GFR (CKD-EPI)AfAm >90 (>60 ml/min/1.73 sqM) Est GFR (CKD-EPI)NonAf 85 (>60 ml/min/1.73 sqM) Glucose 65 L (74-99) mg/dL Lactic Ac Sepsis Rflx Plasma Lactic Acid Archie (0.7-2.0) mmol/L Calcium 8.9 (8.4-10.2) mg/dL Phosphorus 2.5 (2.5-4.5) mg/dL Magnesium 1.6 (1.6-2.3) mg/dL Total Bilirubin 0.5 (0.2-1.3) mg/dL AST 46 (17-59) U/L ALT 22 (4-49) U/L Alkaline Phosphatase 87 (38-126) U/L Troponin I (0.000-0.034) ng/mL NT-Pro-B Natriuret Pep 267 pg/mL Total Protein 6.0 L (6.3-8.2) g/dL Albumin 3.8 (3.5-5.0) g/dL Amylase 75 (30-110) U/L Lipase 68 (23-300) U/L Urine Color Urine Appearance (Clear) Urine pH (5.0-8.0) Ur Specific [place] (1.001-1.035) Urine Protein (Negative) Urine Glucose (UA) (Negative) Urine Ketones (Negative) Urine Blood (Negative) Urine Nitrite (Negative) Urine Bilirubin (Negative) Urine Urobilinogen (<2.0) mg/dL Ur Leukocyte Esterase (Negative) Serum Alcohol 291 H* mg/dL Blood Type Blood Type Recheck Bld Type Recheck Status Antibody Screen Spec Expiration Date 08/28/24 08/28/24 08/28/24 Range/Units 23:00 23:00 23:05 WBC (3.8-10.6) k/uL RBC (4.30-5.90) m/uL Hgb (13.0-17.5) gm/dL Hct (39.0-53.0) % MCV (80.0-100.0) fL MCH (25.0-35.0) pg MCHC (31.0-37.0) g/dL RDW (11.5-15.5) % Plt Count (150-450) k/uL MPV Neutrophils % % Lymphocytes % % Monocytes % % Eosinophils % % Basophils % % Neutrophils # (1.3-7.7) k/uL Lymphocytes # (1.0-4.8) k/uL Monocytes # (0-1.0) k/uL Eosinophils # (0-0.7) k/uL Basophils # (0-0.2) k/uL Macrocytosis PT (10.0-12.5) sec INR (<1.2) APTT (22.0-30.0) sec D-Dimer (<0.60) mg/L FEU Sodium (137-145) mmol/L Potassium (3.5-5.1) mmol/L Chloride (98-107) mmol/L Carbon Dioxide (22-30) mmol/L Anion Gap mmol/L BUN (9-20) mg/dL Creatinine (0.66-1.25) mg/dL Est GFR (CKD-EPI)AfAm (>60 ml/min/1.73 sqM) Est GFR (CKD-EPI)NonAf (>60 ml/min/1.73 sqM) Glucose (74-99) mg/dL Lactic Ac Sepsis Rflx Plasma Lactic Acid Archie 4.8 H* (0.7-2.0) mmol/L Calcium (8.4-10.2) mg/dL Phosphorus (2.5-4.5) mg/dL Magnesium (1.6-2.3) mg/dL Total Bilirubin (0.2-1.3) mg/dL AST (17-59) U/L ALT (4-49) U/L Alkaline Phosphatase (38-126) U/L Troponin I 0.028 (0.000-0.034) ng/mL NT-Pro-B Natriuret Pep pg/mL Total Protein (6.3-8.2) g/dL Albumin (3.5-5.0) g/dL Amylase (30-110) U/L Lipase (23-300) U/L Urine Color Urine Appearance (Clear) Urine pH (5.0-8.0) Ur Specific [place] (1.001-1.035) Urine Protein (Negative) Urine Glucose (UA) (Negative) Urine Ketones (Negative) Urine Blood (Negative) Urine Nitrite (Negative) Urine Bilirubin (Negative) Urine Urobilinogen (<2.0) mg/dL Ur Leukocyte Esterase (Negative) Serum Alcohol mg/dL Blood Type O Positive Blood Type Recheck O Pos Bld Type Recheck Status No Antibody Screen NEGATIVE Spec Expiration Date 08/31/2024230408/29/24 08/29/24 Range/Units 00:47 00:48 WBC (3.8-10.6) k/uL RBC (4.30-5.90) m/uL Hgb (13.0-17.5) gm/dL Hct (39.0-53.0) % MCV (80.0-100.0) fL MCH (25.0-35.0) pg MCHC (31.0-37.0) g/dL RDW (11.5-15.5) % Plt Count (150-450) k/uL MPV Neutrophils % % Lymphocytes % % Monocytes % % Eosinophils % % Basophils % % Neutrophils # (1.3-7.7) k/uL Lymphocytes # (1.0-4.8) k/uL Monocytes # (0-1.0) k/uL Eosinophils # (0-0.7) k/uL Basophils # (0-0.2) k/uL Macrocytosis PT (10.0-12.5) sec INR (<1.2) APTT (22.0-30.0) sec D-Dimer (<0.60) mg/L FEU Sodium (137-145) mmol/L Potassium (3.5-5.1) mmol/L Chloride (98-107) mmol/L Carbon Dioxide (22-30) mmol/L Anion Gap mmol/L BUN (9-20) mg/dL Creatinine (0.66-1.25) mg/dL Est GFR (CKD-EPI)AfAm (>60 ml/min/1.73 sqM) Est GFR (CKD-EPI)NonAf (>60 ml/min/1.73 sqM) Glucose (74-99) mg/dL Lactic Ac Sepsis Rflx Y Plasma Lactic Acid Archie (0.7-2.0) mmol/L Calcium (8.4-10.2) mg/dL Phosphorus (2.5-4.5) mg/dL Magnesium (1.6-2.3) mg/dL Total Bilirubin (0.2-1.3) mg/dL AST (17-59) U/L ALT (4-49) U/L Alkaline Phosphatase (38-126) U/L Troponin I (0.000-0.034) ng/mL NT-Pro-B Natriuret Pep pg/mL Total Protein (6.3-8.2) g/dL Albumin (3.5-5.0) g/dL Amylase (30-110) U/L Lipase (23-300) U/L Urine Color Colorless Urine Appearance Clear (Clear) Urine pH 6.0 (5.0-8.0) Ur Specific [place] 1.012 (1.001-1.035) Urine Protein Negative (Negative) Urine Glucose (UA) Negative (Negative) Urine Ketones Negative (Negative) Urine Blood Negative (Negative) Urine Nitrite Negative (Negative) Urine Bilirubin Negative (Negative) Urine Urobilinogen <2.0 (<2.0) mg/dL Ur Leukocyte Esterase Negative (Negative) Serum Alcohol mg/dL Blood Type Blood Type Recheck Bld Type Recheck Status Antibody Screen Spec Expiration Date Disposition Clinical Impression: Colitis, Shortness of breath, Alcohol intoxication Disposition: ADMITTED IP TO THIS [facility] Condition: Good
[2024-08-28] MEDS: FOLIC ACID 1 MG TAB PO STA (22:48)
[2024-08-28] MEDS: THIAMINE 100 MG/ML 2 ML VIAL IM STA (22:48)
[2024-08-28] MEDS: MULTIVITAMINS, THERA 1 EACH TAB PO STA (22:48)
[2024-08-28] MEDS: MORPHINE SULFATE 4 MG/ML SYRINGE IVP STA (22:48)
[2024-08-28] MEDS: ONDANSETRON 4 MG/2 ML VIAL IVP STA (22:48)
[2024-08-28 23:21] LABS: Basophils # (A) 0.1 k/uL (0-0.2); Basophils % (A) 1 %; Eosinophils # (A) 0.1 k/uL (0-0.7); Eosinophils % (A) 2 %; HCT 34.8 % (39.0-53.0); HGB 11.8 gm/dL (13.0-17.5); Lymphocytes # (A) 1.5 k/uL (1.0-4.8); Lymphocytes % (A) 31 %; MCH 39.8 pg (25.0-35.0); MCHC 33.8 g/dL (31.0-37.0); MCV 117.7 fL (80.0-100.0); Macrocytosis Marked; Mean Platelet Volume 6.8; Monocytes # (A) 0.4 k/uL (0-1.0); Monocytes % (A) 9 %; Neutrophils # (A) 2.7 k/uL (1.3-7.7); Neutrophils % (A) 55 %; Platelet Count 323 k/uL (150-450); RBC 2.96 m/uL (4.30-5.90); RDW 14.2 % (11.5-15.5); WBC 4.9 k/uL (3.8-10.6)
[2024-08-28 23:48] LABS: ALT 22 U/L (4-49); AST 46 U/L (17-59); African American GFR (CKD) >90 (>60 ml/min/1.73 sqM); Albumin 3.8 g/dL (3.5-5.0); Alkaline Phosphatase 87 U/L (38-126); Amylase 75 U/L (30-110); Anion Gap 11 mmol/L; Blood Urea Nitrogen 14 mg/dL (9-20); Calcium 8.9 mg/dL (8.4-10.2); Carbon Dioxide 18 mmol/L (22-30); Chloride 110 mmol/L (98-107); Glucose 65 mg/dL (74-99); Lipase 68 U/L (23-300); Magnesium 1.6 mg/dL (1.6-2.3); Non-African American GFR(CKD) 85 (>60 ml/min/1.73 sqM); Phosphorus 2.5 mg/dL (2.5-4.5); Sodium 139 mmol/L (137-145); Total Bilirubin 0.5 mg/dL (0.2-1.3)
[2024-08-28 23:53] LABS: INR 0.9 (<1.2); Partial Thromboplastin Time 20.8 sec (22.0-30.0); Prothrombin Time 10.2 sec (10.0-12.5)
[2024-08-28 23:54] LABS: NT-Pro-B-Type Natriuretic Pept 267 pg/mL
--- NOTE | 2024-08-29 00:44 | CT ---
EXAMINATION TYPE: CT chest angio for PE DATE OF EXAM: 08/29/2024 COMPARISON: Prior CT November 23, 2022 HISTORY: Abdominal pain for a few weeks, worsening over the past few days. Admits to ETOH, "I'm an al coholic." Pain is LLQ. ELEVATED D DIMER. CT DLP: 299 mGycm. Automated Exposure Control for Dose Reduction was Utilized. CONTRAST: CTA scan of the thorax is performed with IV Contrast, patient injected with 100 COMBINED W/ ABD/PEL W / CON mL of Isovue 370, pulmonary embolism protocol. MIP Images are created on CT scanner and revie wed. FINDINGS: LUNGS: Mild upper lung with underlying emphysematous change is present. There is dependent opacity bi lateral lungs suggesting mild to moderate edema and/or atelectasis. No focal consolidation. No pleura l effusion or pneumothorax seen bilaterally. MEDIASTINUM: There is satisfactory enhancement of the pulmonary artery and its branches, there is no CT evidence for pulmonary embolism. Satisfactory enhancement aorta without aneurysm or dissection. Co ronary artery calcification and/or stents are present. No cardiomegaly or pericardial effusion is see n. Small calcified thyroid nodules are redemonstrated. OTHER: Please refer to same day CT abdomen and pelvis report for complete details on the upper abdome n. IMPRESSION: 1. No CT evidence for acute pulmonary embolism. 2. Mild emphysematous change with [id number] dependent edema and/or atelectasis. No suspicious focal consolidation. [facility], , 08/29/2024 12:42 AM
[2024-08-29 00:48] LABS: Alcohol 291 mg/dL
--- NOTE | 2024-08-29 00:51 | CT ---
EXAMINATION TYPE: CT abdomen pelvis w con DATE OF EXAM: 08/29/2024 COMPARISON: Prior CT April 25, 2024 CLINICAL INDICATION: Male, 68 years old with history of LLQ pain; PHH, Abdominal pain for a few weeks , worsening over the past few days. Admits to ETOH, "I'm an alcoholic." Pain is LLQ. ELEVATED D DIMER . TECHNIQUE: Performed without Oral Contrast and with IV Contrast, patient injected with 100 COMBINED W/ CTA CHEST mL of Isovue 370. CT DLP: [address] CTDI: 44 mGy Automated exposure control for dose reduction was used. FINDINGS: LUNG BASES: Please refer to same day CT thorax study for complete details on the lung bases. LIVER/GB: Liver remains heterogeneously hypodense consistent with diffuse fatty infiltrative hepatoce llular disease. Gallbladder is distended margins without surrounding inflammatory change. No biliary dilatation is noted. PANCREAS: No significant abnormality is seen. SPLEEN: No significant abnormality is seen. ADRENALS: No significant abnormality is seen. KIDNEYS: Symmetric cortical medullary uptake and excretion without hydronephrosis seen bilaterally. FREE AIR: No free air is visualized. RETROPERITONEAL ADENOPATHY: None visualized REPRODUCTIVE ORGANS: No significant abnormality is seen URINARY BLADDER: No significant abnormality is seen. PELVIC ADENOPATHY: None visualized. OSSEOUS STRUCTURES: There is now mild compression type fracture at T12 level and mild to moderate co mpression type fractures at L2 and L5 levels. No linear lucencies definitively seen these levels. Min imal posterior retropulsion posterior superior L5 margin is noted. BOWEL: Slightly suboptimal evaluation without enteric contrast. No abnormal small or large bowel dil atation. Moderate wall thickening involving portions of the colon particularly near the hepatic flexu re and majority of the transverse colon is noted. OTHER: Moderate calcified plaque of the aorta extends into branch vessels IMPRESSION: 1. AN UNCOMPLICATED ACUTE COLITIS IS SUSPECTED. CORRELATE CLINICALLY. 2. THERE ARE NEW MILD TO MODERATE COMPRESSION TYPE FRACTURES AT T12, L2, AND L5 LEVELS TO MOST RECENT PRIOR CT FELT LIKELY SUBACUTE IN AGE. CORRELATE CLINICALLY. [facility], , 08/29/2024 12:49 AM
[2024-08-29 01:17] LABS: Appearance,Urine Clear (Clear); Bilirubin,Urine Negative (Negative); Blood,Urine Negative (Negative); Color,Urine Colorless; Glucose,Urine (UA) Negative (Negative); Ketones,Urine Negative (Negative); Leukocyte Esterase,Urine Negative (Negative); Nitrite,Urine Negative (Negative); Protein,Urine Negative (Negative); Specific Gravity,Urine 1.012 (1.001-1.035); Urobilinogen,Urine <2.0 mg/dL (<2.0)
[2024-08-29] MEDS ORDERED: CALCIUM CARBONATE 500 MG CHEWABLE PO PRN (01:24)
[2024-08-29] MEDS ORDERED: NALOXONE 0.4 MG/ML 1 ML VIAL IV PRN (01:24)
[2024-08-29] MEDS ORDERED: HYDROmorphone 1 MG/ML 1 ML SYRINGE IVP PRN (01:24)
[2024-08-29] MEDS: SODIUM CHLORIDE 0.9% 1,000 ML IV ONE (01:58)
[2024-08-29] MEDS: cefTRIAXone IN SWFI 1,000 MG/10 ML SYRINGE IVP STA (02:04)
[2024-08-29] MEDS: HYDROmorphone 0.5 MG/0.5 ML SYRINGE IVP PRN (02:08)
[2024-08-29] MEDS: metroNIDAZOLE-NS PMX 500 MG in SALINE 1 100ML.BAG IVPB SCH (02:20)
[2024-08-29] MEDS: ONDANSETRON 4 MG/2 ML VIAL IVP PRN (03:33)
[2024-08-29] MEDS: DEXTROSE 5%-0.45% NACL 1,000 ML IV SCH (03:33)
[2024-08-29 07:44] LABS: Glucose,Whole Blood 151 mg/dL (70-110)
[2024-08-29] MEDS: NICOTINE 21MG/24HR PATCH TRANSDERM SCH (08:19)
[2024-08-29] MEDS: FAMOTIDINE 20 MG TAB PO SCH (08:19)
[2024-08-29] MEDS: ENOXAPARIN 40 MG/0.4 ML SYRINGE SQ SCH (08:21)
[2024-08-29] MEDS ORDERED: ALBUTEROL NEBULIZED 2.5 MG/3 ML INHALATION PRN (11:34)
[2024-08-29] MEDS: MAG HYDROX/AL HYDROX/SIMETH 30 ML CUP PO PRN (12:41)
--- NOTE | 2024-08-29 13:55 | P.CONS ---
History of Present Illness - Reason for Consult Consult date: 08/29/24 Abdominal pain Requesting physician: Miroslava Parra - Chief Complaint Abdominal pain - History of Present Illness This a pleasant 68-year-old male with a history of alcohol abuse and hypertension who presented to the emergency department by EMS for complaints of abdominal pain over the last few days duration. States he had no nausea or vomiting until today coming in here. States he just vomited. Denies any blood in his emesis. States he was having some small amounts of loose stool but has not had a bowel movement in the last 2 days. Denied any blood in his stool. States he has had similar symptoms in the past. He drinks half a gallon of vodka about every 2 days. He was admitted with lactic acidosis, he has been afebrile, tachycardic with no leukocytosis. States he has had a colonoscopy about a year ago he believes at the [facility] [place]. Unsure of findings. Patient did have an elevated D-dimer had a chest CTA without any evidence of pulmonary embolism. CT abdomen pelvis reported possible mild uncomplicated colitis. Review of Systems REVIEW OF SYSTEMS: CARDIOPULMONARY: No chest pain or shortness of breath. Gastrointestinal: Abdominal pain. Nausea and vomiting. No hematemesis, coffee- ground emesis. No rectal bleeding, or melena. GENITOURINARY: No dysuria or hematuria. MUSCULOSKELETAL: Reports normal range of motion. SKIN: No rashes. No jaundice. ENDOCRINE: No chills, fevers. No excessive weight gain or loss. No polydipsia or polyuria. PSYCHIATRIC: Unremarkable. NEUROLOGY: No change in mental status. Denies dizziness, headache. ENT: Vision unremarkable. CONSTITUTIONAL: No recent weight loss. No fever, chills, night sweats. Past Medical History Past Medical History: Hyperlipidemia, Hypertension, Osteoarthritis (OA) Additional Past Medical History / Comment(s): RLD History of Any Multi-Drug Resistant Organisms: None Reported Past Surgical History: Orthopedic Surgery Additional Past Surgical History / Comment(s): L leg ortho surgery, Past Anesthesia/Blood Transfusion Reactions: No Reported Reaction, Motion Sickness Past Psychological History: No Psychological Hx Reported Smoking Status: Current every day smoker Past Alcohol Use History: Abuse, Daily, Heavy Past Drug Use History: None Reported - Past Family History Father Additional Family Medical History / Comment(s): Father in his mid to late 60s-pt was told cause of was because his "heart blew up" Mother Family Medical History: CVA/TIA, Diabetes Mellitus Additional Family Medical History / Comment(s): Mother had a CVA. Sister(s) Family Medical History: CVA/TIA, Diabetes Mellitus Additional Family Medical History / Comment(s): Pts twin sister of a CVA in her mid 50s. Brother(s) Family Medical History: CVA/TIA, Diabetes Mellitus Additional Family Medical History / Comment(s): Brother had CVA Medications and Allergies Home Medications Medication Instructions Recorded Confirmed Type Albuterol Sulfate [Proair Hfa] 2 puff INHALATION RT-QID PRN 11/17/21 08/29/24 History Budesonide-Formot 160-4.5 Mcg 2 puff INHALATION RT-BID 11/17/21 08/29/24 History [Symbicort 160-4.5 Mcg Inhaler] Ibuprofen [Motrin] 800 mg PO QID PRN 03/03/24 08/29/24 History Metoprolol Succinate (ER) [Toprol 50 mg PO DAILY 03/03/24 08/29/24 History Xl] Aspirin EC [Ecotrin Low Dose] 81 mg PO DAILY 08/29/24 08/29/24 History Cholecalciferol (Vitamin D3) 75 mcg PO DAILY 08/29/24 08/29/24 History [Vitamin D3 (3000 Iu)] Thiamine [Vitamin B-1] 100 mg PO DAILY 08/29/24 08/29/24 History Allergies Allergy/AdvReac Type Severity Reaction Status Date / Time No Known Allergies Allergy Verified 08/29/24 09:43 Physical Exam Vitals: Vital Signs Temp Pulse Resp BP Pulse Ox 08/29/24 10:00 98.7 F 107 H 21 160/99 96 08/29/24 08:21 105 H 20 156/101 97 08/29/24 05:21 98 22 123/83 96 08/29/24 02:11 103 H 18 135/90 93 L 08/28/24 23:05 86 18 121/76 95 08/28/24 21:51 97.6 F 90 18 143/76 95 Intake and Output 08/28/24 08/29/24 08/29/24 22:59 06:59 14:59 Other: Weight 77.111 kg General appearance: The patient is alert, oriented, appears in no acute distress. HET: Head is normocephalic and atraumatic. Conjunctiva pink. Sclera anicteric. Neck: Supple without lymphadenopathy. Trachea midline. Heart: Regular. Lungs: Equal expansion, normal respiratory effort. Abdomen: Soft, mild lower abdominal tenderness, nondistended. Skin: No rashes. No jaundice. Extremities: Normal skin color and turgor. No pedal edema. Neurological: No focal deficits. Alert and oriented x3. Results CBC & Chem 7: 08/28/24 23:00 08/28/24 23:00 Labs: Abnormal Lab Results - Last 24 Hours (Table) 08/28/24 08/28/24 08/28/24 Range/Units 23:00 23:00 23:00 RBC 2.96 L (4.30-5.90) m/uL Hgb 11.8 L (13.0-17.5) gm/dL Hct 34.8 L (39.0-53.0) % MCV 117.7 H (80.0-100.0) fL MCH 39.8 H (25.0-35.0) pg Macrocytosis Marked A APTT 20.8 L (22.0-30.0) sec D-Dimer 5.58 H (<0.60) mg/L FEU Chloride 110 H (98-107) mmol/L Carbon Dioxide 18 L (22-30) mmol/L Glucose 65 L (74-99) mg/dL POC Glucose (mg/dL) (70-110) mg/dL Plasma Lactic Acid Archie (0.7-2.0) mmol/L Total Protein 6.0 L (6.3-8.2) g/dL Serum Alcohol 291 H* mg/dL 08/28/24 08/29/24 08/29/24 Range/Units 23:00 02:58 06:48 RBC (4.30-5.90) m/uL Hgb (13.0-17.5) gm/dL Hct (39.0-53.0) % MCV (80.0-100.0) fL MCH (25.0-35.0) pg Macrocytosis APTT (22.0-30.0) sec D-Dimer (<0.60) mg/L FEU Chloride (98-107) mmol/L Carbon Dioxide (22-30) mmol/L Glucose (74-99) mg/dL POC Glucose (mg/dL) (70-110) mg/dL Plasma Lactic Acid Archie 4.8 H* 3.4 H* 3.0 H* (0.7-2.0) mmol/L Total Protein (6.3-8.2) g/dL Serum Alcohol mg/dL 08/29/24 Range/Units 07:42 RBC (4.30-5.90) m/uL Hgb (13.0-17.5) gm/dL Hct (39.0-53.0) % MCV (80.0-100.0) fL MCH (25.0-35.0) pg Macrocytosis APTT (22.0-30.0) sec D-Dimer (<0.60) mg/L FEU Chloride (98-107) mmol/L Carbon Dioxide (22-30) mmol/L Glucose (74-99) mg/dL POC Glucose (mg/dL) 151 H (70-110) mg/dL Plasma Lactic Acid Archie (0.7-2.0) mmol/L Total Protein (6.3-8.2) g/dL Serum Alcohol mg/dL Assessment and Plan (1) Abdominal pain Narrative/Plan: 68-year-old male with history of alcoholism who admits to drinking a half a gallon of vodka every 2 days. Came in with abdominal pain CT abdomen pelvis with contrast shows evidence of mild uncomplicated colitis. Possible colitis secondary to infectious process. No leukocytosis. Patient did have lactic acidosis on admission. Recommend supportive care with antiemetics, pain medication and clear liquid diet. Protonix for GI prophylaxis. Recommend alcohol abstinence. Current Visit: Yes Status: Acute Code(s): R10.9 - UNSPECIFIED ABDOMINAL PAIN SNOMED Code(s): 42773987 (2) Alcohol abuse Current Visit: Yes Status: Acute Code(s): F10.10 - ALCOHOL ABUSE, UNCOMPLICATED SNOMED Code(s): 66338603 Plan: 1. Continue symptomatic and supportive care 2. Protonix 40 mg daily for GI prophylaxis 3. May continue Pepcid as ordered 4. Antiemetics as needed 5. Clear liquid diet, advance as tolerated 6. Recommend alcohol abstinence 7. No plans on endoscopic evaluation at this time 8. Continue IV antibiotics for now 9. Please get colonoscopy reports from [facility] 10. Consult to social work for patient concerns for housing situation and inability to care for himself Thank you for this consultation, we will continue to follow. Dr. Melo Fernández I agree with the dictator's note, documented as a scribe by Nichelle Kerns.
[2024-08-29] MEDS: SYMBICORT 160-4.5 MCG INHALER INHALATION SCH (20:04)
[2024-08-29] MEDS ORDERED: LORazepam 2 MG/ML INJ IV PRN ×2 (22:17)
[2024-08-29] MEDS: cloNIDine HCL 0.1 MG TAB PO SCH (22:53)
[2024-08-29] MEDS: amLODIPine 10 MG TAB PO SCH (22:53)
[2024-08-29] MEDS: METOPROLOL SUCCINATE (ER) 100 MG TAB.ER.24H PO SCH (22:53)
--- NOTE | 2024-08-29 23:01 | HP ---
HISTORY AND PHYSICAL CHIEF COMPLAINT: Abdominal pain and acute alcohol intoxication. HISTORY OF PRESENT ILLNESS: This is another admission for this 68-year-old white male, chronic alcoholic, who is also very heavy smoker. He presented to the emergency room with complaints of abdominal pain and he was also intoxicated. He has not been taking any medications except for Motrin. In the emergency room, he had a CT which suggests that he may have colitis. He was also acutely intoxicated. REVIEW OF SYSTEMS: Cannot be reliably obtained. He denied nausea, vomiting, hematemesis, melena, hematochezia, etc. Past medical history, family history, and personal and social histories are all otherwise not reliably obtained. PHYSICAL EXAMINATION: VITAL SIGNS: Blood pressure was 160/101 with a pulse of 86 and regular. HEAD, EARS, EYES, NOSE, MOUTH AND THROAT: Normal. CHEST: Clear. CARDIAC: Demonstrated sinus tachycardia. ABDOMEN: Slightly protuberant and he was tender throughout. There were no definite masses. Bowel sounds are heard. EXTREMITIES: Normal. NEUROLOGICAL: He is intact. ASSESSMENT: He is admitted to the hospital with diagnoses of, 1. Abdominal pain. 2. Possible colitis. 3. Chronic obstructive pulmonary disease. 4. Acute alcohol intoxication and chronic alcoholism. PLAN: 1. Bedrest. 2. IV fluids. 3. CIWA protocol. 4. Work up abdominal pain. 5. GI consult. MMTRINAL / JERRYN: [id number] /
[2024-08-29] MEDS: LORazepam 2 MG/ML INJ IV PRN (23:45)
[2024-08-30] MEDS: PANTOPRAZOLE 40 MG TABLET PO SCH (09:11)
[2024-08-30] MEDS: THIAMINE 100 MG TAB PO SCH (09:12)
[2024-08-30 13:36] LABS: Basophils % (A) 1 %; Eosinophils # (A) 0.2 k/uL (0-0.7); Eosinophils % (A) 3 %; HCT 38.2 % (39.0-53.0); HGB 12.3 gm/dL (13.0-17.5); Lymphocytes # (A) 1.1 k/uL (1.0-4.8); Lymphocytes % (A) 18 %; MCH 38.2 pg (25.0-35.0); MCHC 32.3 g/dL (31.0-37.0); MCV 118.4 fL (80.0-100.0); Macrocytosis Marked; Monocytes # (A) 0.3 k/uL (0-1.0); Monocytes % (A) 5 %; Neutrophils # (A) 4.6 k/uL (1.3-7.7); Neutrophils % (A) 72 %; Platelet Count 255 k/uL (150-450); RBC 3.22 m/uL (4.30-5.90); RDW 14.1 % (11.5-15.5); WBC 6.4 k/uL (3.8-10.6)
[2024-08-30 13:49] LABS: ALT 21 U/L (4-49); AST 42 U/L (17-59); African American GFR (CKD) >90 (>60 ml/min/1.73 sqM); Albumin 3.8 g/dL (3.5-5.0); Albumin/Globulin Ratio 1.7; Alkaline Phosphatase 87 U/L (38-126); Anion Gap 5 mmol/L; Blood Urea Nitrogen 7 mg/dL (9-20); Calcium 9.1 mg/dL (8.4-10.2); Carbon Dioxide 29 mmol/L (22-30); Chloride 101 mmol/L (98-107); Globulin 2.3 g/dL; Glucose 88 mg/dL (74-99); Non-African American GFR(CKD) >90 (>60 ml/min/1.73 sqM); Sodium 135 mmol/L (137-145); Total Protein 6.1 g/dL (6.3-8.2)
--- NOTE | 2024-08-31 08:25 | PN ---
PROGRESS NOTE DATE OF SERVICE: 08/30/2024 CHIEF COMPLAINT: Abdominal pain and acute alcohol intoxication. HISTORY OF PRESENT ILLNESS: This gentleman has left-sided pain, is doing a bit better. He has been seen by GI, and they do not plan endoscopy. They feel conservative management with IV fluids and antibiotics as appropriate. PHYSICAL EXAMINATION: CHEST: Clear. CARDIAC: Exam is normal, and he is a little bit tender in the left lower quadrant. IMPRESSION: 1. Possible colitis. 2. Acute alcohol intoxication. 3. Chronic alcoholism. 4. Chronic obstructive pulmonary disease. PLAN: Continue with fluids and antibiotics and follow his abdominal physical findings. MMODL / IJN: [id number] /
--- NOTE | 2024-08-31 12:10 | P.PN ---
Subjective Progress Note Date: 08/30/24 Principal diagnosis: Abdominal pain This a pleasant 68-year-old male with a history of alcohol abuse and hypertension who presented to the emergency department by EMS for complaints of abdominal pain over the last few days duration. States he had no nausea or vomiting until today coming in here. States he just vomited. Denies any blood in his emesis. States he was having some small amounts of loose stool but has not had a bowel movement in the last 2 days. Denied any blood in his stool. States he has had similar symptoms in the past. He drinks half a gallon of vodka about every 2 days. He was admitted with lactic acidosis, he has been afebrile, tachycardic with no leukocytosis. States he has had a colonoscopy about a year ago he believes at the [facility]. Unsure of findings. Patient did have an elevated D-dimer had a chest CTA without any gianfranco dence of pulmonary embolism. CT abdomen pelvis reported possible mild uncomplicated colitis. 06/30/2024 Patient seen and examined today as a follow-up. States abdominal pain is improved. Tolerating liquid diet. He has been afebrile. Loose bowel movement but no blood. Objective - Vital Signs Vital signs: Vital Signs Temp 97.5 F L 08/29/24 20:22 Pulse 76 08/30/24 08:03 Resp 14 08/30/24 08:03 BP 123/86 08/30/24 08:03 Pulse Ox 96 08/30/24 08:03 FiO2 Intake & Output 08/29/24 08/30/24 08/30/24 18:59 06:59 18:59 Output Total 1950 Balance -1950 Output: Urine 1950 - Exam General appearance: The patient is alert, oriented, appears in no acute distress. HET: Head is normocephalic and atraumatic. Conjunctiva pink. Sclera anicteric. Neck: Supple without lymphadenopathy. Abdomen: Soft, nontender, nondistended. Extremities: Normal skin color and turgor. No pedal edema Skin: No rashes, no jaundice Neurological: No focal deficits. Alert and oriented. - Labs CBC & Chem 7: 08/30/24 13:22 08/30/24 13:22 Labs: Abnormal Lab Results - Last 24 Hours (Table) 08/29/24 Range/Units 09:32 PSA Screen 5.270 H (0.000-4.000) ng/mL Assessment and Plan (1) Abdominal pain Narrative/Plan: 68-year-old male with history of alcoholism who admits to drinking a half a gallon of vodka every 2 days. Came in with abdominal pain CT abdomen pelvis with contrast shows evidence of mild uncomplicated colitis. Possible colitis secondary to infectious process. No leukocytosis. Patient did have lactic acidosis on admission. Recommend supportive care with antiemetics, pain medication and clear liquid diet. Protonix for GI prophylaxis. Recommend alcohol abstinence. Current Visit: Yes Status: Acute Code(s): R10.9 - UNSPECIFIED ABDOMINAL PAIN SNOMED Code(s): 27549732 (2) Alcohol abuse Current Visit: Yes Status: Acute Code(s): F10.10 - ALCOHOL ABUSE, UNCOMPLICATED SNOMED Code(s): 20083796 Plan: 1. Continue symptomatic and supportive care 2. Protonix 40 mg daily for GI prophylaxis 3. May continue Pepcid as ordered 4. Antiemetics as needed 5. Advance to low-fat diet 6. Recommend alcohol abstinence 7. No plans on endoscopic evaluation at this time 8. Consult to social work for patient concerns for housing situation and inability to care for himself Thank you for this consultation, we will continue to follow. Dr. Melo Fernández I agree with the dictator's note, documented as a scribe by Nichelle Kerns.
--- NOTE | 2024-08-31 12:13 | P.PN ---
Subjective Progress Note Date: 08/31/24 Principal diagnosis: Abdominal pain This a pleasant 68-year-old male with a history of alcohol abuse and hypertension who presented to the emergency department by EMS for complaints of abdominal pain over the last few days duration. States he had no nausea or vomiting until today coming in here. States he just vomited. Denies any blood in his emesis. States he was having some small amounts of loose stool but has not had a bowel movement in the last 2 days. Denied any blood in his stool. States he has had similar symptoms in the past. He drinks half a gallon of vodka about every 2 days. He was admitted with lactic acidosis, he has been afebrile, tachycardic with no leukocytosis. States he has had a colonoscopy about a year ago he believes at the [facility]. Unsure of findings. Patient did have an elevated D-dimer had a chest CTA without any gianfranco dence of pulmonary embolism. CT abdomen pelvis reported possible mild uncomplicated colitis. 08/30/2024 Patient seen and examined today as a follow-up. States abdominal pain is improved. Tolerating liquid diet. He has been afebrile. Loose bowel movement but no blood. 08/31/2024 Patient seen and examined today as a follow-up. He continues to state no abdominal pain. He does have some diarrhea but only 1-2 episodes yesterday that were nonbloody. No nausea or vomiting. He has been afebrile. Denies any fevers or chills. He is tolerating low-fat diet. Objective - Vital Signs Vital signs: Vital Signs Temp 99.0 F 08/31/24 07:38 Pulse 76 08/31/24 07:38 Resp 18 08/31/24 07:38 BP 143/88 08/31/24 07:38 Pulse Ox 97 08/31/24 07:38 FiO2 Intake & Output 08/30/24 08/31/24 08/31/24 18:59 06:59 18:59 Other: # Voids 1 - Exam General appearance: The patient is alert, oriented, appears in no acute distress. HET: Head is normocephalic and atraumatic. Conjunctiva pink. Sclera anicteric. Neck: Supple without lymphadenopathy. Abdomen: Soft, nontender, nondistended. Extremities: Normal skin color and turgor. No pedal edema Skin: No rashes, no jaundice Neurological: No focal deficits. Alert and oriented. - Labs CBC & Chem 7: 08/30/24 13:22 08/30/24 13:22 Labs: Abnormal Lab Results - Last 24 Hours (Table) 08/30/24 08/30/24 Range/Units 13:22 13:22 RBC 3.22 L (4.30-5.90) m/uL Hgb 12.3 L (13.0-17.5) gm/dL Hct 38.2 L (39.0-53.0) % MCV 118.4 H (80.0-100.0) fL MCH 38.2 H (25.0-35.0) pg Macrocytosis Marked A Sodium 135 L (137-145) mmol/L BUN 7 L (9-20) mg/dL Total Protein 6.1 L (6.3-8.2) g/dL Assessment and Plan (1) Abdominal pain Narrative/Plan: 68-year-old male with history of alcoholism who admits to drinking a half a gallon of vodka every 2 days. Came in with abdominal pain CT abdomen pelvis with contrast shows evidence of mild uncomplicated colitis. Possible colitis secondary to infectious process. No leukocytosis. Patient did have lactic acidosis on admission. Recommend supportive care with antiemetics, pain medication and clear liquid diet. Protonix for GI prophylaxis. Recommend alcohol abstinence. Current Visit: Yes Status: Acute Code(s): R10.9 - UNSPECIFIED ABDOMINAL PAIN SNOMED Code(s): 17711509 (2) Alcohol abuse Current Visit: Yes Status: Acute Code(s): F10.10 - ALCOHOL ABUSE, UNCOMPLICATED SNOMED Code(s): 64775184 Plan: 1. Continue symptomatic and supportive care 2. Protonix 40 mg daily for GI prophylaxis 3. May continue Pepcid as ordered 4. Antiemetics as needed 5. Continue low-fat diet 6. Recommend alcohol abstinence 7. No plans on endoscopic evaluation at this time 8. Consult to social work for patient concerns for housing situation and inability to care for himself Thank you for this consultation, patient is cleared by gastroenterology. We will sign off at this time. Dr. Melo Fernández I agree with the dictator's note, documented as a scribe by Nichelle Krens.
[2024-08-31] MEDS: metroNIDAZOLE 500 MG TAB PO SCH (13:38)
[2024-09-01] MEDS: ACETAMINOPHEN TAB 325 MG TAB PO PRN (06:40)
[2024-09-01 10:11] VITALS: RESP 18; TEMP 98.4
[2024-09-01 15:00] VITALS: BP 120/79; PULSE 52
[2024-09-01] MEDS ORDERED: AMOXIC-POT CLAV 875-125MG 1 EACH TAB PO SCH (21:00)
--- NOTE | 2024-09-02 03:34 | PN ---
PROGRESS NOTE DATE OF SERVICE: 08/31/2024 CHIEF COMPLAINT: 1. Abdominal pain. 2. Acute alcohol intoxication. HISTORY OF PRESENT ILLNESS: This gentleman is doing better. He is not in DTs. He denies shortness of breath, chest pain, etc. He does state that his legs feel very weak. Blood pressure is also elevated. OBJECTIVE: CHEST: Clear. CARDIAC: Exam is normal. ABDOMEN: Soft and less tender now, otherwise. No masses or visceromegaly. IMPRESSION: 1. Abdominal pain. 2. Acute alcohol intoxication. 3. DTs. 4. Chronic alcoholism. 5. Chronic obstructive pulmonary disease. 6. Leg weakness. PLAN: Encourage to increase activity and monitor blood pressure. Possibly home soon. MMODL / IJN: [id number] /
--- NOTE | 2024-09-02 03:34 | DS ---
DISCHARGE SUMMARY CHIEF COMPLAINT: Abdominal pain. HISTORY OF PRESENT ILLNESS AND PHYSICAL EXAMINATION: Details of this man's history and physical can be found in the initial workup. LABORATORY STUDIES: While he was in the hospital, he had laboratory studies, details of which can be found in the laboratory section of his chart. COURSE IN THE HOSPITAL: After admission, he was placed on bedrest, started on intravenous fluids, and he was placed on the CIWA protocol. He was seen by Surgery for his abdominal pain, which was slowly subsided. It had originally been more in the epigastric area and right upper quadrant, but progressed more to the left lower quadrant. It was thought he may have colitis or possibly diverticulitis. He was doing well and symptoms had improved and it was felt that he could go home on the . He will go home on his usual activity, diet, and medication. He will be admonished not to smoke or consume any more alcohol. He will be on Flagyl and Augmentin. He will be followed up in several days in the office. FINAL DIAGNOSES: 1. Abdominal pain. 2. Colitis. 3. Diverticulitis. 4. Chronic obstructive pulmonary disease. 5. Chronic alcoholism. 6. Acute alcohol intoxication. 7. Delirium tremens. OPERATIONS: None. CONSULTATIONS: Gastroenterology. He is improved. MMODL / IJN: [id number] /
== END 2024-09-01 16:43 | disposition home or self-care (01) ==
LOC: EC 21:47 → 5NMEDONC 08-29 01:27 → INTOOBSV 08-29 01:27 → 5NMEDONC 08-29 05:14 → 4SSUR 08-30 21:17
PROVIDERS: ADMIT Family Medicine; ATTEND Family Medicine
DX: K52.9 Noninfective gastroenteritis and colitis, unspecified (principal); K57.32 Diverticulitis of large intestine without perforation or abscess without bleeding; F10.231 Alcohol dependence with withdrawal delirium; F10.229 Alcohol dependence with intoxication, unspecified; E87.20 Acidosis, unspecified; R53.1 Weakness; R79.1 Abnormal coagulation profile; F17.200 Nicotine dependence, unspecified, uncomplicated; E78.5 Hyperlipidemia, unspecified; I10 Essential (primary) hypertension; J44.9 Chronic obstructive pulmonary disease, unspecified; M19.90 Unspecified osteoarthritis, unspecified site; Z79.51 Long term (current) use of inhaled steroids; Z79.82 Long term (current) use of aspirin; Y90.8 Blood alcohol level of 240 mg/100 ml or more; Z79.899 Other long term (current) drug therapy
CPT/HCPCS: 96376 ×4; 96366 ×3; 96372 ×5; 96361 ×2; 96365; 96375 ×2; 99285; 36415; 94640 ×5; 93005; 86900; 86901; 85379; 83880; 80053 ×2; 82150; 83605 ×2; 83690; 83735; 84100; 84484; 85025 ×2; 85610; 85730; 86850; 81003; 71275; 74177; G0378 ×5; G0103; G0480; J2060; J2270; J3411; J2405 ×3; J1650 ×4; J0696; J1171 ×4; Q9967; J1836 ×3; 80320